=== PATIENT | male | born 1955 | race Caucasian/White ===

== ENCOUNTER 2018-05-10 07:51 | Inpatient (IN) | payer OTHER ==
[2018-05-10 09:15] LABS: #Lymphocytes 0.8 thou/uL (1.20-3.40); #Monocytes 0.9 thou/uL (0.11-0.59); #Neutrophils 9.2 thou/uL (1.40-6.50); %Basophils 0.1 % (0.0-1.0); %Eosinophils 0.2 % (0.0-10.0); %Lymphocytes 7.6 % (21.0-51.0); %Monocytes 7.7 % (0.0-10.0); %Neutrophils 84.3 % (42.0-75.0); Hemoglobin 13.7 g/dL (14.0-18.0); Mean Corpuscular HGB CONC 31.8 g/dL (32.0-36.0); Mean Corpuscular Hemoglobin 30.8 pg (27.0-31.0); Mean Platelet Volume 6.5 fL (7.4-10.4); Platelet Count 253 thou/uL (130-400); Red Blood Cell (RBC) Count 4.45 mill/uL (4.70-6.10); White Blood Cell (WBC) Count 10.9 thou/uL (4.8-10.8)
[2018-05-10 09:36] LABS: ALT (SGPT) 13 U/L (8-55); AST (SGOT) 12 U/L (5-34); Albumin 3.7 g/dL (3.4-4.8); Alkaline Phosphatase 114 U/L (40-150); Anion Gap 12 mmol/L (10-20); BUN (Urea Nitrogen) 14 mg/dL (8.4-25.7); Bilirubin, Total 0.8 mg/dL (0.2-1.2); Calc. Creatinine Clearance 0 mL/min (70-130); Calcium 8.8 mg/dL (7.8-10.44); Carbon Dioxide 28 mmol/L (23-31); Chloride 103 mmol/L (98-107); Estimated GFR-MDRD 64; Globulin 2.6 g/dL (2.4-3.5); Glucose 104 mg/dL (80-115); Potassium 3.7 mmol/L (3.5-5.1); Protein, Total 6.3 g/dL (5.8-8.1); Sodium 139 mmol/L (136-145)
[2018-05-10] MEDS ORDERED: ISOVUE-370 76%-LOCM 1 ML ONE (09:53)
[2018-05-10] MEDS ORDERED: Piperacillin/Tazobactam 4.5 GM VIAL ONE (10:18)
--- NOTE | 2018-05-10 11:29 | CT ---
CT ABDOMEN AND PELVIS WITH IV CONTRAST: Date: 05/10/18 HISTORY: Abdominal pain which began 1 day ago. COMPARISON: None available. FINDINGS: There is colonic diverticulosis seen diffusely throughout the colon with a small to moderate amount o f retained fecal material seen throughout the colon. There is inflammatory stranding seen in the righ t lower quadrant. The appendix is visualized in this region and is normal in caliber. Inflammatory st randing surrounds the appendix and in addition there is free intraperitoneal gas seen throughout the abdomen suggesting bowel perforation. These findings could be related to diverticulitis and perforati on of diverticulum, but given that gas and inflammatory changes are seen adjacent to the appendix, an d although the appendix is normal in caliber, ruptured appendix with adjacent inflammatory changes re lated to appendicitis is a possibility as well, and this is difficult to further delineate. Although again, the appendix is not dilated. There is dependent bibasilar atelectasis. There is a 3.6 cm hypodense fluid attenuation lesion within the superior pole right kidney, as well a s 4.7 cm fluid attenuation cystic lesion inferior pole right kidney, compatible with cyst. Additional subcentimeter hypodense lesions are seen within the left kidney, also statistically likely represent ing cysts. A calculus is present within the gallbladder lumen. The liver, spleen, pancreas, bilateral adrenal glands, abdominal aorta, and urinary bladder demonstra te a normal CT appearance. No free fluid or fluid collection is seen in the abdomen or pelvis. Degenerative changes are seen in the spine. There is severe left hip osteoarthritis present. IMPRESSION: 1. Free intraperitoneal gas seen throughout the abdomen suggesting bowel perforation. There are infl ammatory changes seen in the right lower quadrant, and the sigmoid colon extends into the right lower quadrant. There is no thickening of the sullivan of the colon in this region, and the appendix is not d ilated. The exact etiology for the inflammatory change is uncertain. Findings could be related to eit her perforated diverticulum or possibly perforated appendicitis; although, a normal caliber appendix now present. Findings are favored to be related to perforation of a diverticulum. 2. Cholelithiasis. There is mild intrahepatic biliary ductal dilatation of uncertain etiology. ERCP may be helpful for further evaluation. 3. Bilateral renal cysts. Above findings discussed with Dr. Metcalf in the emergency department on 05/10/18 at 1001 hours. CODE CR. POS: [facility]
--- NOTE | 2018-05-10 11:36 | HP ---
CHIEF COMPLAINT: Abdominal pain. HISTORY OF PRESENT ILLNESS: This is a 62-year-old male with no real history of abdominal pain, who presents with acute onset of severe lower abdominal cramping and pain yesterday, became more diffuse, bloating, and more severe pain this morning. Seen in the emergency room where he has been found to have a perforated colon. He has stranding change around the cecum and in the appendix area. The appendix does look normal on the CAT scan, but he has free air even in the upper abdomen. He denies nausea or vomiting. No change in stools. He has had colonoscopies that are up-to-date, and he was told he had diverticulosis. He has had a mild case of diverticulitis in the past, but never had any perforation. PAST MEDICAL HISTORY: Includes hypertension, GERD, dyslipidemia, and BPH. PAST SURGICAL HISTORY: He denies. MEDICATIONS: Taken daily include lisinopril, statin, melatonin, vitamins, Flomax. ALLERGIES: NO KNOWN DRUG ALLERGIES. SOCIAL HISTORY: He denies no current smoking. Occasional alcohol. No other drugs. REVIEW OF SYSTEMS: Otherwise, negative unless described above. PHYSICAL EXAMINATION: VITAL SIGNS: His blood pressure is 130/72, his pulse is 72, his respirations afebrile. GENERAL: Alert, no acute distress. HEENT: Sclerae anicteric. Oropharynx clear. NECK: No lymphadenopathy. CHEST: Clear. HEART: Regular rate and rhythm. ABDOMEN: Soft, mildly diffusely distended. He has diffuse guarding and peritoneal signs on deep palpation. No abdominal or inguinal hernias. EXTREMITIES: No ischemia or edema to extremities. LABORATORY DATA: White blood cell count is 10 with a hemoglobin of 13. Creatinine is 1.15. CT scan shows perforation. ASSESSMENT: Perforated viscus. PLAN: He will go to the operating room for likely colon resection plus or minus ostomy. Risks, benefits, and alternatives were discussed. He gives consent. We will do this today. Job ID: [id number]
[2018-05-10] MEDS ORDERED: Fentanyl 100 MCG/2 ML VIAL ONE ×3 (12:04→14:34)
[2018-05-10] MEDS ORDERED: Famotidine/PF 20 mg/2ml Vial ONE (12:05)
[2018-05-10] MEDS ORDERED: Ketorolac Tromethamine 30 MG/ML VIAL ONE (13:54)
[2018-05-10] MEDS ORDERED: Ondansetron PF 4 MG/2 ML Vial ONE (13:54)
[2018-05-10] MEDS ORDERED: ePHEDrine 50 MG/ML VIAL ONE (13:54)
[2018-05-10] MEDS ORDERED: PHENYLEPHRINE-NS 100 MCG/ML 10 ML SYRINGE ONE (13:54)
[2018-05-10] MEDS ORDERED: PROPOFOL 200 MG/20 ML VIAL ONE (13:54)
[2018-05-10] MEDS ORDERED: Rocuronium Bromide 10 MG/ML (10ML VIAL) ONE (13:54)
[2018-05-10] MEDS ORDERED: Succinylcholine Chloride 20 MG/ML 10 ml SYRINGE FS ONE (13:54)
[2018-05-10] MEDS ORDERED: Dexamethasone 20 MG/5 ML VIAL ONE (13:54)
[2018-05-10] MEDS ORDERED: Lidocaine 1% PF 5 ML VIAL ONE (13:54)
[2018-05-10] MEDS ORDERED: Glycopyrrolate 0.2 MG/ML 5 ML SYRINGE ONE (13:54)
[2018-05-10] MEDS ORDERED: SUGAMMADEX SODIUM 200 MG/2 ML VIAL ONE (13:56)
[2018-05-10] MEDS ORDERED: Promethazine HCl 25 MG/ML VIAL IM PRN ×3 (14:17→14:37)
[2018-05-10] MEDS ORDERED: Promethazine HCl 25 MG/ML VIAL SLOW IVP PRN (14:17)
[2018-05-10] MEDS ORDERED: Ondansetron HCl/PF 4 MG/2 ML Vial IVP PRN (14:17)
[2018-05-10] MEDS ORDERED: Meperidine HCl/PF 25 MG/ML VIAL SLOW IVP PRN (14:17)
[2018-05-10] MEDS ORDERED: diphenhydrAMINE 25 MG CAP PO PRN (14:24)
[2018-05-10] MEDS ORDERED: Zolpidem Tartrate 5 MG TAB PO PRN (14:24)
[2018-05-10] MEDS ORDERED: diphenhydrAMINE 50 MG/ML VIAL IVP PRN (14:24)
[2018-05-10] MEDS ORDERED: diphenhydrAMINE 50 MG/ML VIAL IM PRN (14:24)
[2018-05-10] MEDS ORDERED: fentaNYL Citrate/PF 2,000 MCG in Sodium Chloride 0.9% 60 ML IV PRN (14:24)
[2018-05-10] MEDS ORDERED: Ondansetron PF 4 MG/2 ML Vial IVP PRN ×2 (14:24→14:37)
[2018-05-10] MEDS ORDERED: Ketorolac Tromethamine 30 MG/ML VIAL IVP PRN (14:24)
[2018-05-10] MEDS ORDERED: Naloxone HCl 0.4 mg/ml Vial IV PRN (14:24)
[2018-05-10] MEDS ORDERED: Communication Order-Pharmacy FS SCH (14:30)
[2018-05-10] MEDS ORDERED: hydrALAZINE 20 MG/ML VIAL SLOW IVP PRN (14:37)
[2018-05-10 17:16] VITALS: BMI 39.4
[2018-05-10] MEDS: Acetaminophen 1,000 MG in Premix Bag 1 BAG IVPB SCH ×2 (18:11→23:50)
[2018-05-10] MEDS: Piperacillin/Tazobactam 3.375 GM in Sodium Chloride 0.9% 100 ML IVPB SCH (18:16)
[2018-05-10] MEDS ORDERED: Sodium Chloride 0.9% 1,000 ML IV SCH ×2 (19:00→20:00)
[2018-05-10] MEDS: D5 1/2 NS w/20 mEq KCL 1,000 ML IV SCH ×2 (19:50→23:50)
[2018-05-10] MEDS: Famotidine 20 MG TAB PO SCH (20:36)
[2018-05-10] MEDS: Enoxaparin Sodium 40 MG/0.4 ML SYRINGE SC SCH (20:36)
[2018-05-10] MEDS: Famotidine/PF 20 mg/2ml Vial SLOW IVP SCH (20:37)
--- NOTE | 2018-05-10 20:37 | OP ---
DATE OF PROCEDURE: 05/10/2018 PREOPERATIVE DIAGNOSIS: Perforated sigmoid diverticulitis. POSTOPERATIVE DIAGNOSIS: Perforated sigmoid diverticulitis. PROCEDURE PERFORMED: Exploratory laparotomy, sigmoid colectomy with end colostomy (Arjun's procedure). ANESTHESIA: General. ESTIMATED BLOOD LOSS: 50 mL. COMPLICATIONS: None. SPECIMEN: Sigmoid colon. FINDINGS: Ruptured sigmoid diverticulitis. TECHNIQUE: The patient was taken to the operating room and laid supine on the operating room table. After general anesthetic was obtained, a Dias was placed. The abdomen was shaved, prepped, and draped in a sterile fashion. Midline incision was made. Cautery dissected down to and into the abdominal cavity. Incision was made just above the belly button all the way down to the pubis. Bookwalter retractor was placed. The sigmoid colon had flipped over to the right lower quadrant, but there was a sigmoid colon perforation in the area of diverticulum. Contour stapler was fired across the lower sigmoid distal to this. The mesentery going up was taken using the Impact LigaSure. Just above the area of perforation, a reload of the stapler was fired across the sigmoid colon had been stuck to the side of the appendix. Decision was made to perform appendectomy. LigaSure was used to take the appendiceal artery and a reload on the contour stapler was fired across the base of the appendix on the cecum. The left colon was mobilized along the white line of Toldt. The left ureter was found excluded from the dissection. Ellipse of skin taken on the left lower quadrant. A cruciate incision was made in the fascia. Muscle-splitting incision was made and then end colostomy segments brought up under no tension, held in place using a Jacob. The abdomen was irrigated. There was no ongoing bleeding. There was no evidence of any residual purulence and there was no significant fecal contamination. Two pieces of Seprafilm were placed to prevent postop adhesions. Midline fascia was closed with #1 PDS from the top to the bottom, and tied in the middle. Subcutaneous tissues were irrigated and the skin was closed using skin clips followed by Telfa lamont in between the parag. The colostomy was matured in the usual fashion using 3-0 Vicryl. The patient was then returned to Recovery in stable condition. All instrument counts, needle counts, lap counts were correct. Job ID: [id number]
[2018-05-11] MEDS: Piperacillin/Tazobactam 3.375 GM in Sodium Chloride 0.9% 100 ML IVPB SCH ×5 (00:15→23:10)
[2018-05-11 04:30] LABS: #Lymphocytes 0.5 thou/uL (1.20-3.40); #Monocytes 0.7 thou/uL (0.11-0.59); #Neutrophils 11.3 thou/uL (1.40-6.50); %Eosinophils 0.1 % (0.0-10.0); %Lymphocytes 4.1 % (21.0-51.0); %Monocytes 5.5 % (0.0-10.0); %Neutrophils 90.2 % (42.0-75.0); Hemoglobin 12.7 g/dL (14.0-18.0); Mean Corpuscular HGB CONC 31.9 g/dL (32.0-36.0); Mean Corpuscular Hemoglobin 31.1 pg (27.0-31.0); Mean Corpuscular Volume 97.4 fL (78.0-98.0); Mean Platelet Volume 6.7 fL (7.4-10.4); Platelet Count 250 thou/uL (130-400); RBC Distribution Width 11.9 % (11.5-14.5); Red Blood Cell (RBC) Count 4.08 mill/uL (4.70-6.10); White Blood Cell (WBC) Count 12.5 thou/uL (4.8-10.8)
[2018-05-11 04:50] LABS: Anion Gap 13 mmol/L (10-20); BUN (Urea Nitrogen) 15 mg/dL (8.4-25.7); Calc. Creatinine Clearance 107 mL/min (70-130); Calcium 8.5 mg/dL (7.8-10.44); Carbon Dioxide 26 mmol/L (23-31); Chloride 104 mmol/L (98-107); Estimated GFR-MDRD 65; Glucose 152 mg/dL (80-115); Potassium 4.1 mmol/L (3.5-5.1); Sodium 139 mmol/L (136-145)
[2018-05-11] MEDS: Acetaminophen 1,000 MG in Premix Bag 1 BAG IVPB SCH ×2 (05:49→11:57)
[2018-05-11] MEDS: D5 1/2 NS w/20 mEq KCL 1,000 ML IV SCH ×3 (09:45→16:29)
[2018-05-11] MEDS: Famotidine/PF 20 mg/2ml Vial SLOW IVP SCH ×2 (09:49→20:18)
[2018-05-11] MEDS: Famotidine 20 MG TAB PO SCH ×2 (09:52→20:15)
[2018-05-11] MEDS ORDERED: Tamsulosin HCl 0.4 MG CAP PO SCH (10:15)
--- NOTE | 2018-05-11 10:34 | PRG ---
DATE OF SERVICE: 05/11/2018 SUBJECTIVE: Postop day 1, left colectomy, colostomy. Mr. Neumann is doing well. His pain is controlled. He has already walked a few times. OBJECTIVE: VITAL SIGNS: He is afebrile. Vital signs are stable. Urine output is good. ABDOMEN: Soft, appropriately tender. Midline incision dressings are changed. There is some blood on the Telfa lamont. Colostomy site is intact. The colostomy mucosa is pink. LABORATORY DATA: White cell count is 12, hemoglobin is 12, platelet count is 250. Creatinine 1.14. ASSESSMENT: Postoperative day 1, Arjun procedure. PLAN: Clear liquids again today. Discontinue Dias tomorrow. We will re-add his home medications. Job ID: [id number]
[2018-05-11] MEDS: Ketotifen Fumarate 0.025% Ophth Soln 5 ml Bottle EA EYE SCH (20:14)
[2018-05-11] MEDS: Melatonin 3 MG TAB PO SCH (20:15)
[2018-05-11] MEDS: Enoxaparin Sodium 40 MG/0.4 ML SYRINGE SC SCH (20:17)
[2018-05-12] MEDS: Piperacillin/Tazobactam 3.375 GM in Sodium Chloride 0.9% 100 ML IVPB SCH ×4 (05:29→23:56)
[2018-05-12 05:32] LABS: #Eosinphils 0.1 thou/uL (0.0-0.7); #Lymphocytes 0.7 thou/uL (1.20-3.40); #Monocytes 0.9 thou/uL (0.11-0.59); #Neutrophils 10.2 thou/uL (1.40-6.50); %Basophils 0.2 % (0.0-1.0); %Eosinophils 0.8 % (0.0-10.0); %Lymphocytes 5.6 % (21.0-51.0); %Monocytes 7.8 % (0.0-10.0); %Neutrophils 85.5 % (42.0-75.0); Hemoglobin 13.5 g/dL (14.0-18.0); Mean Corpuscular HGB CONC 31.4 g/dL (32.0-36.0); Mean Corpuscular Hemoglobin 30.8 pg (27.0-31.0); Mean Platelet Volume 6.8 fL (7.4-10.4); Platelet Count 279 thou/uL (130-400); RBC Distribution Width 11.9 % (11.5-14.5); Red Blood Cell (RBC) Count 4.38 mill/uL (4.70-6.10)
[2018-05-12 05:56] LABS: Anion Gap 14 mmol/L (10-20); BUN (Urea Nitrogen) 9 mg/dL (8.4-25.7); Calc. Creatinine Clearance 112 mL/min (70-130); Calcium 8.8 mg/dL (7.8-10.44); Carbon Dioxide 24 mmol/L (23-31); Chloride 106 mmol/L (98-107); Estimated GFR-MDRD 68; Glucose 111 mg/dL (80-115); Sodium 140 mmol/L (136-145)
[2018-05-12] MEDS: Lisinopril 20 MG TAB PO SCH (08:25)
[2018-05-12] MEDS: Famotidine 20 MG TAB PO SCH ×2 (08:27→18:22)
[2018-05-12] MEDS: Tamsulosin HCl 0.4 MG CAP PO SCH (08:28)
[2018-05-12] MEDS: Famotidine/PF 20 mg/2ml Vial SLOW IVP SCH ×2 (08:29→19:52)
[2018-05-12] MEDS: Ketotifen Fumarate 0.025% Ophth Soln 5 ml Bottle EA EYE SCH ×2 (08:29→19:52)
[2018-05-12] MEDS: Montelukast Sodium 10 mg Tablet PO SCH (08:35)
[2018-05-12] MEDS: D5 1/2 NS w/20 mEq KCL 1,000 ML IV SCH ×2 (08:36→19:52)
[2018-05-12] MEDS ORDERED: Fentanyl 100 MCG/2 ML VIAL SLOW IVP PRN ×2 (09:37)
[2018-05-12] MEDS ORDERED: HYDROcodone/Acetaminophen 7.5/325 mg Tablet PO PRN ×2 (09:38)
--- NOTE | 2018-05-12 09:48 | PRG ---
DATE OF SERVICE: 05/12/2018 SUBJECTIVE: Mr. Neumann has no complaints. He tolerated the clear liquids without difficulty. His Dias was removed this morning. He is still due to void. He has already been restarted on his Flomax. OBJECTIVE: VITAL SIGNS: He is afebrile. Vital signs are stable. ABDOMEN: Soft, minimally distended, but active bowel sounds. Midline wound dressings are clear. Colostomy mucosa is pink, but not much stool yet. LABORATORY DATA: White blood cell count is 12, hemoglobin 13, platelet count is 279. Creatinine 1.09. ASSESSMENT: Postop day #2, left colectomy with end colostomy for ruptured sigmoid diverticulitis. PLAN: Continue antibiotics. Advance to full liquids. Replace Dias if not able to void. Job ID: [id number]
[2018-05-12] MEDS: Melatonin 3 MG TAB PO SCH (19:52)
[2018-05-12] MEDS: Enoxaparin Sodium 40 MG/0.4 ML SYRINGE SC SCH (19:52)
[2018-05-13] MEDS: Piperacillin/Tazobactam 3.375 GM in Sodium Chloride 0.9% 100 ML IVPB SCH ×4 (05:17→23:27)
[2018-05-13] MEDS: Lisinopril 20 MG TAB PO SCH (08:57)
[2018-05-13] MEDS: Famotidine 20 MG TAB PO SCH ×2 (08:57→21:37)
[2018-05-13] MEDS: Montelukast Sodium 10 mg Tablet PO SCH (08:57)
[2018-05-13] MEDS: Tamsulosin HCl 0.4 MG CAP PO SCH (08:58)
[2018-05-13] MEDS: Famotidine/PF 20 mg/2ml Vial SLOW IVP SCH ×2 (09:14→21:37)
[2018-05-13] MEDS: Ketotifen Fumarate 0.025% Ophth Soln 5 ml Bottle EA EYE SCH ×2 (11:36→21:38)
[2018-05-13] MEDS: Enoxaparin Sodium 40 MG/0.4 ML SYRINGE SC SCH (21:36)
[2018-05-13] MEDS: Melatonin 3 MG TAB PO SCH (21:38)
[2018-05-14] MEDS: Piperacillin/Tazobactam 3.375 GM in Sodium Chloride 0.9% 100 ML IVPB SCH ×2 (05:33→12:00)
[2018-05-14] MEDS: Famotidine/PF 20 mg/2ml Vial SLOW IVP SCH ×2 (09:21→21:27)
[2018-05-14] MEDS: Montelukast Sodium 10 mg Tablet PO SCH (09:21)
[2018-05-14] MEDS: Famotidine 20 MG TAB PO SCH ×2 (09:21→21:27)
[2018-05-14] MEDS: Ketotifen Fumarate 0.025% Ophth Soln 5 ml Bottle EA EYE SCH ×2 (09:22→21:27)
[2018-05-14] MEDS: Lisinopril 20 MG TAB PO SCH (09:22)
[2018-05-14] MEDS: Tamsulosin HCl 0.4 MG CAP PO SCH (09:24)
--- NOTE | 2018-05-14 13:49 | PDOC.GSPN ---
Surgery Progress Note: Subj - Subjective Patient reports: no new complaints, tolerating a regular diet Surgery Progress Note: Obj - Vital signs Vital signs: Vital Signs - Most Recent Temp Pulse Resp BP Pulse Ox 98.5 F 75 16 116/71 96 05/14/18 12:00 05/14/18 12:00 05/14/18 12:00 05/14/18 12:00 05/14/18 12:00 - Physical Exam General: no distress Respiratory: clear to auscultation Abdomen: soft, non tender, nondistended Wound: healing well Surgery Progress Note: Results - Labs Result Diagrams: 05/12/18 05:08 05/12/18 05:08 Surgery Progress Note: A/P - Problem (1) Perforated sigmoid colon Current Visit: Yes Code(s): K63.1 - PERFORATION OF INTESTINE (NONTRAUMATIC) Status: Acute - Plan Plan: Dressing changed. -change to oral abx -home tomorrow
[2018-05-14] MEDS: metroNIDAZOLE 500 MG TAB PO SCH ×2 (14:34→21:27)
[2018-05-14] MEDS: Ciprofloxacin 500 MG TAB PO SCH (21:26)
[2018-05-14] MEDS: Enoxaparin Sodium 40 MG/0.4 ML SYRINGE SC SCH (21:27)
[2018-05-14] MEDS: Melatonin 3 MG TAB PO SCH (21:27)
[2018-05-15] MEDS: Ciprofloxacin 500 MG TAB PO SCH (05:33)
[2018-05-15] MEDS: Famotidine/PF 20 mg/2ml Vial SLOW IVP SCH (08:09)
[2018-05-15] MEDS: Famotidine 20 MG TAB PO SCH (08:10)
[2018-05-15] MEDS: Lisinopril 20 MG TAB PO SCH (08:10)
[2018-05-15] MEDS: metroNIDAZOLE 500 MG TAB PO SCH (08:10)
[2018-05-15] MEDS: Montelukast Sodium 10 mg Tablet PO SCH (08:10)
[2018-05-15] MEDS: Ketotifen Fumarate 0.025% Ophth Soln 5 ml Bottle EA EYE SCH (08:10)
[2018-05-15] MEDS: Tamsulosin HCl 0.4 MG CAP PO SCH (08:10)
[2018-05-15 14:05] VITALS: BP 132/86; TEMP 98.3
--- NOTE | 2018-05-15 14:20 | DIS ---
DATE OF ADMISSION: 05/10/2018 DATE OF DISCHARGE: 05/15/2018 ADMITTING DIAGNOSIS: Ruptured sigmoid diverticulitis. DISCHARGE DIAGNOSIS: Ruptured sigmoid diverticulitis. PROCEDURES: Sigmoid colectomy and colostomy by Dr. Anna without complication. CONDITION ON DISCHARGE: Improved. STAFF: Preston Anna MD HOSPITAL COURSE: Postop course was uneventful. The patient's ileus slowly resolved. On the day of discharge, he is doing well. He is tolerating regular food. He is afebrile. Vital signs are stable. Minimal pain. His abdominal lamont were removed and the wound was probed few times in between parag. There was no evidence of infection at the time of discharge. He is to be sent home on Cipro and Flagyl. He was given a prescription for ostomy supplies. He was given a prescription for hydrocodone. He will follow up with me in the office in 2 weeks for staple removal. Job ID: [id number]
== END 2018-05-15 13:45 | disposition home or self-care (01) | DRG 330 ==
LOC: ERS 07:51 → SURG A 12:03 → SDC 12:48 → SURG A 15:22
PROVIDERS: ADMIT Surgery; ATTEND Surgery
PROC: 0DTN0ZZ Resection of Sigmoid Colon, Open Approach (ICD-10-PCS; principal; 2018-05-10)
PROC: 0D1L0Z4 Bypass Transverse Colon to Cutaneous, Open Approach (ICD-10-PCS; 2018-05-10)
PROC: 0DTJ0ZZ Resection of Appendix, Open Approach (ICD-10-PCS; 2018-05-10)
PROC: 3E0M05Z Introduction of Adhesion Barrier into Peritoneal Cavity, Open Approach (ICD-10-PCS; 2018-05-10)
DX: K57.20 Diverticulitis of large intestine with perforation and abscess without bleeding (principal); K56.7 Ileus, unspecified; I10 Essential (primary) hypertension; K21.9 Gastro-esophageal reflux disease without esophagitis; E78.5 Hyperlipidemia, unspecified; N40.0 Benign prostatic hyperplasia without lower urinary tract symptoms
CPT/HCPCS: 36415; 74177; 80048; 80053; 85025; 88307; 90471; 90686; 93005; 96361; 96365; G0008; J0131; J1100; J1650; J1885; J2001; J2405; J2543; J2704; J3010; J3490; J7050; Q9966; S0028

== ENCOUNTER 2018-05-23 11:28 | Outpatient (CLI) | payer OTHER ==
[2018-05-23] MEDS ORDERED: Sodium Chloride 0.9% 15 ML NEB ONE (15:00)
== END 2018-05-23 11:29 | disposition home or self-care (01) ==
LOC: WCC 11:28
PROVIDERS: ATTEND Family Medicine
DX: Z48.815 Encounter for surgical aftercare following surgery on the digestive system (principal); Z93.3 Colostomy status
CPT/HCPCS: 99211; A4218; G0463

== ENCOUNTER 2018-07-11 16:52 | Emergency (ER) | payer OTHER ==
--- NOTE | 2018-07-11 18:43 | RAD ---
THREE VIEWS RIGHT HAND: 07/11/18 HISTORY: Right hand finger deformity. AP, lateral and oblique views right hand obtained. Images demonstrate dislocation of the PIP joint fourth digit right hand. The rest of the right hand i s unremarkable. IMPRESSION: PIP joint dislocation fourth digit right hand. POS: [facility]
--- NOTE | 2018-07-11 19:42 | RAD ---
THREE VIEWS FOURTH DIGIT RIGHT HAND: 07/11/18 HISTORY: Post reduction, dislocated digit. AP, lateral and oblique views fourth digit right hand obtained. Images demonstrate status post reduction of the finger dislocation. Small avulsion fracture is seen a nterior to the proximal portion of the middle phalanx. The dislocated finger has been reduced. IMPRESSION: Status post reduction of the dislocated PIP joint. Small avulsion fracture seen anterior to the proxi mal portion of the middle phalanx. POS: [facility]
== END 2018-07-11 19:54 | disposition home or self-care (01) ==
LOC: ERS 16:52
DX: S62.612A Displaced fracture of proximal phalanx of right middle finger, initial encounter for closed fracture (principal); E78.5 Hyperlipidemia, unspecified; I10 Essential (primary) hypertension; F32.9 Major depressive disorder, single episode, unspecified; W10.9XXA Fall (on) (from) unspecified stairs and steps, initial encounter
CPT/HCPCS: 26770

== ENCOUNTER 2018-08-20 06:29 | Outpatient (CLI) | payer OTHER ==
[2018-08-22 14:54] LABS: #Eosinphils 0.1 thou/uL (0.0-0.7); #Lymphocytes 1.1 thou/uL (1.20-3.40); #Monocytes 0.7 thou/uL (0.11-0.59); #Neutrophils 6.1 thou/uL (1.40-6.50); %Basophils 0.3 % (0.0-1.0); %Eosinophils 1.1 % (0.0-10.0); %Lymphocytes 13.4 % (21.0-51.0); %Monocytes 8.3 % (0.0-10.0); %Neutrophils 77.1 % (42.0-75.0); Hemoglobin 15.8 g/dL (14.0-18.0); Mean Corpuscular HGB CONC 32.6 g/dL (32.0-36.0); Mean Corpuscular Hemoglobin 30.8 pg (27.0-31.0); Mean Corpuscular Volume 94.4 fL (78.0-98.0); Mean Platelet Volume 6.9 fL (7.4-10.4); Platelet Count 287 thou/uL (130-400); RBC Distribution Width 12.6 % (11.5-14.5); Red Blood Cell (RBC) Count 5.14 mill/uL (4.70-6.10)
[2018-08-22 15:04] LABS: Hemoglobin A1c 5.8 % (4.0-6.0)
[2018-08-22 15:19] LABS: Anion Gap 13 mmol/L (10-20); BUN (Urea Nitrogen) 27 mg/dL (8.4-25.7); Calc. Creatinine Clearance 0 mL/min (70-130); Calcium 9.4 mg/dL (7.8-10.44); Carbon Dioxide 26 mmol/L (23-31); Chloride 102 mmol/L (98-107); Estimated GFR-MDRD 66; Glucose 100 mg/dL (80-115); Potassium 4.9 mmol/L (3.5-5.1); Sodium 136 mmol/L (136-145)
== END 2018-08-20 06:30 | disposition home or self-care (01) ==
LOC: LABBT 06:29
PROVIDERS: ATTEND Surgery
DX: Z01.818 Encounter for other preprocedural examination (principal); K57.92 Diverticulitis of intestine, part unspecified, without perforation or abscess without bleeding
CPT/HCPCS: 80048; 83036; 85025; 93005; 93010

== ENCOUNTER 2018-08-26 05:37 | Inpatient (IN) | payer OTHER ==
[2018-08-26] MEDS ORDERED: Fentanyl 100 MCG/2 ML VIAL ONE ×3 (06:30→09:02)
[2018-08-26] MEDS ORDERED: Midazolam HCl 2 mg/2 ml Vial ONE ×2 (06:30→06:33)
[2018-08-26] MEDS ORDERED: cefOXitin 2 GM VIAL ONE ×2 (06:31→09:11)
[2018-08-26] MEDS ORDERED: Sodium Chloride 0.9% 100 ML ONE (06:31)
[2018-08-26] MEDS ORDERED: HYDROmorphone 2 MG/ML VIAL ONE (10:57)
[2018-08-26] MEDS ORDERED: fentaNYL Citrate/PF 2,000 MCG in Sodium Chloride 0.9% 60 ML IV PRN (12:08)
[2018-08-26] MEDS ORDERED: diphenhydrAMINE 25 MG CAP PO PRN (12:10)
[2018-08-26] MEDS ORDERED: diphenhydrAMINE 50 MG/ML VIAL IM/IV PRN (12:10)
[2018-08-26] MEDS ORDERED: Zolpidem Tartrate 5 MG TAB PO PRN (12:10)
[2018-08-26] MEDS ORDERED: Promethazine HCl 25 MG/ML VIAL IM PRN ×2 (12:10→17:24)
[2018-08-26] MEDS ORDERED: Ondansetron PF 4 MG/2 ML Vial IVP PRN ×2 (12:10→17:24)
[2018-08-26] MEDS ORDERED: Naloxone HCl 0.4 mg/ml Vial IV PRN (12:10)
--- NOTE | 2018-08-26 16:07 | OP ---
DATE OF PROCEDURE: 08/26/2018 PREOPERATIVE DIAGNOSES: 1. History of ruptured diverticulitis. 2. Colostomy dysfunction. POSTOPERATIVE DIAGNOSES: 1. History of ruptured diverticulitis. 2. Colostomy dysfunction. 3. Rectal stricture. PROCEDURE PERFORMED: Attempted colostomy takedown via exploratory laparotomy, repair of rectal stump. No colostomy reversal was performed. ANESTHESIA: General. ESTIMATED BLOOD LOSS: 400 mL. COMPLICATIONS: None. FINDINGS: The patient had a low rectal stricture, which was dissected free, but passage of a stapler caused a tear of the rectum that had to be repaired. DESCRIPTION OF PROCEDURE: The patient underwent mechanical and antibiotic bowel prep. He had preop colonoscopy revealing no proximal disease or malignancy. He had preop tap blocks. He was taken to the operating room and laid supine on the operating room table. After general anesthetic was obtained, a Dias was placed. He was placed in lithotomy position. Midline incision was reopened. Cautery was dissected down into the abdominal cavity. There were minimal adhesions in the abdomen. The small bowel was retracted out of the pelvis exposing the rectal stump. The rectal stump was dissected down to the upper rectum. The rectal serosa appeared viable. Next, the colostomy was taken down in the usual fashion by lifting it up from the skin in the left lower quadrant. The colostomy was able to be brought down into the pelvis under no tension. A 31 EEA anvil was passed through the colostomy and mesenteric surface of the colon proximally just distal to this, a stapler was stapled across the colon locking the anvil in place. This was able to be brought down into the pelvis under no tension. The EEA sizers were then brought up through the anus and it was found that he had a tight stenosis in the mid upper rectum; however, the small EEA sizer was able to traverse this area. The 31 EEA stapler was then passed up and there was some difficulty passing it up to the point of the distal staple line, but it was able to be done and the anvil was brought down from above and an anastomosis was performed. The anastomosis was tested by air insufflation and there was significant air leakage. Dissection was taken down and further in the rectum. Posterior dissection was taken down all the way to the levators. There was a posterior tear going down to the lower third of the rectum. A reload of a contour stapler was fired just above this for the colon segment from above to be brought back out of the pelvis. This was repaired using 2-0 Vicryl in 2 layers; however, after repair of the rectum, it appeared to be fairly small and contracted. Decision was made to not perform pelvic anastomosis. The proximal segment brought back out through the colostomy site. The fascial defect was tightened using PDS. There was no ongoing bleeding in the abdomen. The abdomen was irrigated using sterile solution. Seprafilm was placed. Midline fascia was closed using #1 PDS from the top to the bottom and tied in the middle. All instrument counts, needle counts, and lap counts were correct. The skin was closed using 3-0 Vicryl, 4-0 Monocryl, and Dermabond. Colostomy was then matured again using 3-0 Vicryl. Colostomy device was placed. The patient was sent to Recovery in stable condition. All instrument counts, needle counts, and lap counts were correct. Job ID: [id number]
[2018-08-26] MEDS ORDERED: hydrALAZINE 20 MG/ML VIAL SLOW IVP PRN (17:24)
[2018-08-26] MEDS ORDERED: cefOXitin 2 GM in Sodium Chloride 0.9% 100 ML IVPB SCH (18:00)
[2018-08-26 18:22] VITALS: BMI 39.0
[2018-08-26] MEDS: Acetaminophen 1,000 MG in Premix Bag 1 BAG IVPB SCH (18:58)
[2018-08-26] MEDS: cefOXitin Sodium/Dextrose,Iso 2 GM in Premix Bag 1 BAG IVPB SCH (19:39)
[2018-08-26] MEDS: D5 1/2 NS w/20 mEq KCL 1,000 ML IV SCH (19:39)
[2018-08-26] MEDS: Famotidine 20 MG TAB PO SCH (20:32)
[2018-08-26] MEDS: Atorvastatin Calcium 40 MG TAB PO SCH (20:32)
[2018-08-26] MEDS: Enoxaparin Sodium 40 MG/0.4 ML SYRINGE SC SCH (20:33)
[2018-08-26] MEDS: Melatonin 3 MG TAB PO SCH (20:33)
[2018-08-26] MEDS: Ketotifen Fumarate 0.025% Ophth Soln 5 ml Bottle EA EYE SCH (20:33)
[2018-08-26] MEDS: Famotidine/PF 20 mg/2ml Vial SLOW IVP SCH (20:34)
[2018-08-27] MEDS: Acetaminophen 1,000 MG in Premix Bag 1 BAG IVPB SCH ×4 (00:07→11:58)
[2018-08-27] MEDS: cefOXitin Sodium/Dextrose,Iso 2 GM in Premix Bag 1 BAG IVPB SCH ×3 (02:13→18:05)
[2018-08-27] MEDS: D5 1/2 NS w/20 mEq KCL 1,000 ML IV SCH ×4 (03:57→18:06)
[2018-08-27 04:45] LABS: #Lymphocytes 0.7 thou/uL (1.20-3.40); #Monocytes 0.8 thou/uL (0.11-0.59); #Neutrophils 11.4 thou/uL (1.40-6.50); %Eosinophils 0.1 % (0.0-10.0); %Lymphocytes 5.3 % (21.0-51.0); %Monocytes 6.4 % (0.0-10.0); %Neutrophils 88.2 % (42.0-75.0); Hemoglobin 12.9 g/dL (14.0-18.0); Mean Corpuscular HGB CONC 32.4 g/dL (32.0-36.0); Mean Corpuscular Hemoglobin 30.9 pg (27.0-31.0); Mean Corpuscular Volume 95.5 fL (78.0-98.0); Mean Platelet Volume 7.2 fL (7.4-10.4); Platelet Count 235 thou/uL (130-400); RBC Distribution Width 12.3 % (11.5-14.5); Red Blood Cell (RBC) Count 4.17 mill/uL (4.70-6.10); White Blood Cell (WBC) Count 12.9 thou/uL (4.8-10.8)
[2018-08-27 05:01] LABS: Anion Gap 11 mmol/L (10-20); BUN (Urea Nitrogen) 15 mg/dL (8.4-25.7); Calc. Creatinine Clearance 107 mL/min (70-130); Calcium 8.2 mg/dL (7.8-10.44); Carbon Dioxide 28 mmol/L (23-31); Chloride 102 mmol/L (98-107); Estimated GFR-MDRD 64; Glucose 140 mg/dL (80-115); Potassium 4.6 mmol/L (3.5-5.1); Sodium 136 mmol/L (136-145)
[2018-08-27] MEDS: Montelukast Sodium 10 mg Tablet PO SCH (08:30)
[2018-08-27] MEDS: DULoxetine 60 MG CAP PO SCH (08:30)
[2018-08-27] MEDS: Tamsulosin HCl 0.4 MG CAP PO SCH (08:30)
[2018-08-27] MEDS: Famotidine 20 MG TAB PO SCH ×2 (08:30→20:11)
[2018-08-27] MEDS: Famotidine/PF 20 mg/2ml Vial SLOW IVP SCH ×2 (08:31→20:58)
[2018-08-27] MEDS: Ketotifen Fumarate 0.025% Ophth Soln 5 ml Bottle EA EYE SCH ×2 (08:31→20:11)
[2018-08-27] MEDS: Lisinopril 20 MG TAB PO SCH (08:31)
[2018-08-27] MEDS ORDERED: Fluticasone Propionate Nasal Spray 16 gm Bottle NASAL PRN (09:00)
--- NOTE | 2018-08-27 11:21 | PDOC.GSPN ---
Surgery Progress Note: Subj - Subjective Patient reports: no new complaints, feels better, nausea, pain is less Narrative: Mr. Neumann reports feeling better today. Pain scale 7/10, however he states he feels "okay" and pain is better than yesterday. He denies vomiting, headaches, shortness of breath, and palpitations. Patient was moved to a full liquid diet yesterday. He mentions some nausea, reflux, and coughing at first due to the liquids given being too acidic for him to tolerate. However, he was able to tolerate potato soup and vanilla pudding well, which decreased these symptoms Patient had a goal of walking 4 times yesterday, in which he was only able to walk and ambulate twice. He experienced some dizziness with the activity, however he says he feels okay and will try more today. [[August 28, 2018 - 6:39am]] Surgery Progress Note: Obj - Vital signs Vital signs: Vital Signs - Most Recent Temp Pulse Resp BP Pulse Ox 98.1 F 81 18 105/68 94 L 08/27/18 11:14 08/27/18 11:14 08/27/18 11:14 08/27/18 11:14 08/27/18 11:14 - Physical Exam General: no distress (Patient is pleasant and cooperative.) ENT: no congestion Neck: no lymphadectomy, no masses Cardiovascular: regular rate and rhythm Respiratory: clear to auscultation (Had a little discomfort taking full breath.) Abdomen: soft (Slight tenderness upon light palpation. No pain. Surgical inscision appears clean and without erythema or infectious signs. No abdominal bruits. Bowel sounds slightly decreased and quiet to auscultation. Dias still in place. Colostomy bag appears clean with some blood.), appropriately tender Hernia: none Surgery Progress Note: Results - Labs Result Diagrams: 08/27/18 03:53 08/27/18 03:53 Lab results: Laboratory Results - last 24 hr 08/27/18 08/27/18 08/27/18 03:53 03:53 05:41 WBC 12.9 H RBC 4.17 L Hgb 12.9 L Hct 39.8 L MCV 95.5 MCH 30.9 MCHC 32.4 RDW 12.3 Plt Count 235 MPV 7.2 L Neutrophils % 88.2 H Lymphocytes % 5.3 L Monocytes % 6.4 Eosinophils % 0.1 Basophils % 0.0 Neutrophils # 11.4 H Lymphocytes # 0.7 L Monocytes # 0.8 H Eosinophils # 0.0 Basophils # 0.0 Sodium 136 Potassium 4.6 Chloride 102 Carbon Dioxide 28 Anion Gap 11 BUN 15 Creatinine 1.16 Estimated GFR (MDRD) 64 Glucose 140 H POC Glucose 130 H Calcium 8.2 Surgery Progress Note: A/P - Plan Plan: A/P Colostomy Post Op -Continue pain management as needed -Continue on full liquid diet. May advance diet later on today depending on how he tolerates it. -Continue walking/ambulation (Ex-goal: walk at least 2 times or more to maintain activity from previous day) -Wound care Addendum - Physician - Physician Attestation Date/Time: 09/01/18 [id number] I personally performed or re-performed the physical examination and medical decision making. I have verified all student documentation or findings, including history, physical exam and/or medical decision making.
--- NOTE | 2018-08-27 11:33 | PDOC.GSPN ---
Surgery Progress Note: Subj - Subjective Patient reports: pain well controlled Surgery Progress Note: Obj - Vital signs Vital signs: Vital Signs - Most Recent Temp Pulse Resp BP Pulse Ox 98.1 F 81 18 105/68 94 L 08/27/18 11:14 08/27/18 11:14 08/27/18 11:14 08/27/18 11:14 08/27/18 11:14 - Physical Exam General: no distress Cardiovascular: regular rate and rhythm Respiratory: clear to auscultation Abdomen: soft, appropriately tender Wound: healing well Surgery Progress Note: Results - Labs Result Diagrams: 08/27/18 03:53 08/27/18 03:53 Lab results: Laboratory Results - last 24 hr 08/27/18 08/27/18 08/27/18 03:53 03:53 05:41 WBC 12.9 H RBC 4.17 L Hgb 12.9 L Hct 39.8 L MCV 95.5 MCH 30.9 MCHC 32.4 RDW 12.3 Plt Count 235 MPV 7.2 L Neutrophils % 88.2 H Lymphocytes % 5.3 L Monocytes % 6.4 Eosinophils % 0.1 Basophils % 0.0 Neutrophils # 11.4 H Lymphocytes # 0.7 L Monocytes # 0.8 H Eosinophils # 0.0 Basophils # 0.0 Sodium 136 Potassium 4.6 Chloride 102 Carbon Dioxide 28 Anion Gap 11 BUN 15 Creatinine 1.16 Estimated GFR (MDRD) 64 Glucose 140 H POC Glucose 130 H Calcium 8.2 Surgery Progress Note: A/P - Problem (1) Colostomy dysfunction Current Visit: Yes Code(s): K94.03 - COLOSTOMY MALFUNCTION Status: Acute - Plan Plan: POD 1 Attempted Colostomy reversal -Not amenable to takedown given rectal stricture -Advance to full liquids -ambulate
[2018-08-27] MEDS: Enoxaparin Sodium 40 MG/0.4 ML SYRINGE SC SCH (20:12)
[2018-08-27] MEDS: Melatonin 3 MG TAB PO SCH (20:12)
[2018-08-27] MEDS: Atorvastatin Calcium 40 MG TAB PO SCH (20:12)
[2018-08-28] MEDS: cefOXitin Sodium/Dextrose,Iso 2 GM in Premix Bag 1 BAG IVPB SCH ×3 (02:15→18:06)
[2018-08-28] MEDS: D5 1/2 NS w/20 mEq KCL 1,000 ML IV SCH ×2 (06:44→09:36)
[2018-08-28] MEDS: Tamsulosin HCl 0.4 MG CAP PO SCH (09:38)
[2018-08-28] MEDS: DULoxetine 60 MG CAP PO SCH (09:39)
[2018-08-28] MEDS: Lisinopril 20 MG TAB PO SCH (09:39)
[2018-08-28] MEDS: Montelukast Sodium 10 mg Tablet PO SCH (09:39)
[2018-08-28] MEDS: Famotidine 20 MG TAB PO SCH ×2 (09:39→19:45)
[2018-08-28] MEDS: Ketotifen Fumarate 0.025% Ophth Soln 5 ml Bottle EA EYE SCH ×2 (09:40→19:45)
[2018-08-28] MEDS ORDERED: D5 1/2 NS w/20 mEq KCL 1,000 ML IV SCH (11:39)
[2018-08-28] MEDS: Famotidine/PF 20 mg/2ml Vial SLOW IVP SCH ×2 (11:52→19:44)
[2018-08-28] MEDS ORDERED: HYDROcodone/Acetaminophen 10/325 mg Tablet PO PRN ×2 (11:55)
[2018-08-28] MEDS ORDERED: traMADol HCl 50 MG TAB PO PRN ×2 (11:57)
[2018-08-28] MEDS ORDERED: Fentanyl 100 MCG/2 ML VIAL SLOW IVP PRN (11:59)
[2018-08-28] MEDS: Atorvastatin Calcium 40 MG TAB PO SCH (19:44)
[2018-08-28] MEDS: Melatonin 3 MG TAB PO SCH (19:44)
[2018-08-28] MEDS: Enoxaparin Sodium 40 MG/0.4 ML SYRINGE SC SCH (19:45)
[2018-08-29] MEDS: cefOXitin Sodium/Dextrose,Iso 2 GM in Premix Bag 1 BAG IVPB SCH ×3 (01:04→17:35)
--- NOTE | 2018-08-29 07:55 | PDOC.GSPN ---
Surgery Progress Note: Subj - Subjective Patient reports: no new complaints, feels better, pain well controlled, tolerating liquids well, nausea Narrative: Mr. Neumann states he feels good today. He denies vomiting, headaches, shortness of breath, or palpitations. Rates pain 0/10. He mentioned some intermittent reflux and nausea. He also had a question regarding traveling with his colostomy bag. Activity is still going well. He went to 2 walks yesterday (same as the day before). Will try to ambulate more today. Tolerating full liquid diet much better than yesterday. Experienced reflux from acidic liquids at first, and therefore prefer's puddings and cream of wheat with which he can better tolerate. May begin to consume soft foods. Surgery Progress Note: Obj - Vital signs Vital signs: Vital Signs - Most Recent Temp Pulse Resp BP Pulse Ox 97.7 F 83 18 105/63 95 08/29/18 04:00 08/29/18 04:00 08/29/18 04:00 08/29/18 04:00 08/29/18 04:00 - Physical Exam General: no distress, no pain ENT: normal mucosa Neck: no lymphadectomy, no masses Cardiovascular: regular rate and rhythm (No murmurs or gallops.) Respiratory: clear to auscultation, normal expansion, normal respiratory effort (Breathing well without difficulty.) Abdomen: soft, positive bowel sounds (Bowel sounds present and more active than yesterday. No pain upon light palpation. No abdominal bruits.), appropriately tender Wound: dressing clean,dry,intact (Colostomy bag with contents today.), healing well (Surgical inscision is clean and dry wihtout signs of infection or erythema. Slight bleeding present but well controlled and covered with gauze.) Surgery Progress Note: Results - Labs Result Diagrams: 08/27/18 03:53 08/27/18 03:53 Surgery Progress Note: A/P - Plan Plan: A/P Colostomy - Pain well managed. Will continue pain medicines as needed. - Full liquids well tolerated. Will advance diet to soft foods. - Aim to increase ambulation to more than 2 walks to maintain activity. - Continue wound care. Addendum - Physician - Physician Attestation Date/Time: 08/29/18 [id number] I personally performed or re-performed the physical examination and medical decision making. I have verified all student documentation or findings, including history, physical exam and/or medical decision making. -Expect DC tomorrow -I sent omar/akiko to [facility] on
[2018-08-29] MEDS: DULoxetine 60 MG CAP PO SCH (09:21)
[2018-08-29] MEDS: Lisinopril 20 MG TAB PO SCH (09:21)
[2018-08-29] MEDS: Montelukast Sodium 10 mg Tablet PO SCH (09:21)
[2018-08-29] MEDS: Tamsulosin HCl 0.4 MG CAP PO SCH (09:21)
[2018-08-29] MEDS: Famotidine 20 MG TAB PO SCH ×2 (09:21→21:08)
[2018-08-29] MEDS: Famotidine/PF 20 mg/2ml Vial SLOW IVP SCH ×2 (09:31→21:12)
[2018-08-29] MEDS: Ketotifen Fumarate 0.025% Ophth Soln 5 ml Bottle EA EYE SCH ×2 (09:32→21:09)
[2018-08-29] MEDS ORDERED: HYDROcodone/Acetaminophen 7.5/325 mg Tablet PO PRN ×2 (11:48)
[2018-08-29] MEDS: Melatonin 3 MG TAB PO SCH ×2 (21:08→21:11)
[2018-08-29] MEDS: Enoxaparin Sodium 40 MG/0.4 ML SYRINGE SC SCH (21:08)
[2018-08-29] MEDS: Atorvastatin Calcium 40 MG TAB PO SCH (21:08)
[2018-08-30] MEDS: cefOXitin Sodium/Dextrose,Iso 2 GM in Premix Bag 1 BAG IVPB SCH ×2 (01:01→09:07)
[2018-08-30] MEDS: Lisinopril 20 MG TAB PO SCH (09:05)
[2018-08-30] MEDS: Montelukast Sodium 10 mg Tablet PO SCH (09:05)
[2018-08-30] MEDS: DULoxetine 60 MG CAP PO SCH (09:06)
[2018-08-30] MEDS: Ketotifen Fumarate 0.025% Ophth Soln 5 ml Bottle EA EYE SCH (09:06)
[2018-08-30] MEDS: Tamsulosin HCl 0.4 MG CAP PO SCH (09:06)
[2018-08-30] MEDS: Famotidine 20 MG TAB PO SCH (09:06)
[2018-08-30] MEDS: Famotidine/PF 20 mg/2ml Vial SLOW IVP SCH (09:11)
[2018-08-30 15:14] VITALS: BP 124/77; TEMP 98.6
--- NOTE | 2018-08-30 15:25 | PRG ---
DATE OF SERVICE: 08/30/2018 SUBJECTIVE: Matt Neumann is a 62-year-old male, status post laparotomy with failed colostomy reversal due to rectal stricture and tear. He is tolerating his diet. He has no complaints. His pain is adequately relieved by oral analgesics. OBJECTIVE: VITAL SIGNS: Temperature 98.5 degrees, pulse, 85, blood pressure 109/72. LUNGS: Clear to auscultation. CARDIAC: Regular rate and rhythm without murmur or gallop. ABDOMEN: Soft. Bowel sounds present. Colostomy healthy. Wound well healed. Postoperative day #4. LABORATORY DATA: There are no labs today. ASSESSMENT AND PLAN: Doing well. PLAN: Discharge home today. Follow up with Dr. Anna as an outpatient per appointment. Job ID: [id number]
== END 2018-08-30 16:56 | disposition home or self-care (01) | DRG 330 ==
LOC: SDC 05:37 → SURG A 16:27
PROVIDERS: ADMIT Surgery; ATTEND Surgery
PROC: 0DQP0ZZ Repair Rectum, Open Approach (ICD-10-PCS; principal; 2018-08-26)
DX: K94.03 Colostomy malfunction (principal); K57.80 Diverticulitis of intestine, part unspecified, with perforation and abscess without bleeding
CPT/HCPCS: 36415; 36416; 80048; 85025; 88304; J0131; J0694; J1170; J1650; J2250; J2405; J3010; J3490; Q0163; S0028

== ENCOUNTER 2020-01-07 21:32 | Inpatient (IN) | payer OTHER ==
[~2020-01-07 21:32] MED LIST: Iopamidol-370 76% 500 ML 1 ML ONE
[2020-01-07 22:39] LABS: #Eosinphils 0.1 thou/uL (0.0-0.7); #Lymphocytes 1.1 thou/uL (1.20-3.40); #Monocytes 0.7 thou/uL (0.11-0.59); #Neutrophils 10.1 thou/uL (1.40-6.50); %Basophils 0.1 % (0.0-1.0); %Eosinophils 0.5 % (0.0-10.0); %Lymphocytes 8.9 % (21.0-51.0); %Monocytes 5.7 % (0.0-10.0); %Neutrophils 84.7 % (42.0-75.0); Hemoglobin 14.2 g/dL (14.0-18.0); Mean Corpuscular HGB CONC 32.4 g/dL (32.0-36.0); Mean Corpuscular Hemoglobin 29.5 pg (27.0-31.0); Mean Corpuscular Volume 91.1 fL (78.0-98.0); Mean Platelet Volume 6.7 fL (7.4-10.4); Platelet Count 264 thou/uL (130-400); RBC Distribution Width 12.5 % (11.5-14.5); Red Blood Cell (RBC) Count 4.83 mill/uL (4.70-6.10); White Blood Cell (WBC) Count 11.9 thou/uL (4.8-10.8)
[2020-01-07 23:04] LABS: ALT (SGPT) 20 U/L (8-55); AST (SGOT) 15 U/L (5-34); Albumin 3.9 g/dL (3.4-4.8); Alkaline Phosphatase 109 U/L (40-110); Anion Gap 14 mmol/L (10-20); BUN (Urea Nitrogen) 23 mg/dL (8.4-25.7); Bilirubin, Total 0.4 mg/dL (0.2-1.2); Calc. Creatinine Clearance 0 mL/min (70-130); Calcium 8.7 mg/dL (7.8-10.44); Carbon Dioxide 24 mmol/L (23-31); Chloride 103 mmol/L (98-107); Estimated GFR-MDRD 74; Glucose 118 mg/dL (80-115); Lipase 15 U/L (8-78); Potassium 3.3 mmol/L (3.5-5.1); Protein, Total 6.9 g/dL (5.8-8.1); Sodium 138 mmol/L (136-145)
[2020-01-08] MEDS ORDERED: Ondansetron PF 4 MG/2 ML Vial ONE
[2020-01-08] MEDS ORDERED: Benzocaine 20% Spray 60 ML CAN ONE (00:14)
[2020-01-08] MEDS ORDERED: Morphine 4 MG/ML VIAL SLOW IVP PRN (01:29)
[2020-01-08] MEDS ORDERED: Ondansetron ODT 4 MG TAB SL PRN (01:30)
[2020-01-08] MEDS ORDERED: Ondansetron PF 4 MG/2 ML Vial IVP PRN (01:30)
[2020-01-08 01:42] VITALS: BMI 44.5
[2020-01-08] MEDS: Sodium Chloride 0.9% 1,000 ML IV SCH ×2 (02:16→10:09)
--- NOTE | 2020-01-08 07:40 | CT ---
CT ABDOMEN AND PELVIS PERFORMED WITH CONTRAST ENHANCEMENT: HISTORY: Left lower quadrant abdomen pain and vomiting. COMPARISON: 05/10/2018 exam. FINDINGS: The lung bases are clear of infiltrates. Subsegmental atelectatic change is seen. Some fluid seen w ithin the distal esophagus could be on the basis of reflux. The liver shows some small peripheral areas of decreased attenuation. This could represent some smal l areas of scarring. It appears similar to the 2019 exam. There is some mild intrahepatic ductal pr ominence and there is some increased attenuation within the gallbladder compatible with gallstones. The spleen and pancreas regions appear unremarkable. Right and left adrenal glands are normal. Right and left kidneys are normal in size. Bilateral karey l cysts are identified. No significant periaortic or mesenteric adenopathy. There are 2 large herni as present. One is more of a ventral midline hernia which contains both small and large bowel withou t obstruction. The second is a left-sided large parastomal hernia. There is an element of obstructi on associated with this with some of the small bowel loops being mildly dilated and fluid-filled in t his region. This includes some dilated loops within the hernia itself as well as within the small ramana wel within the abdomen in this region. No free fluid. No pelvic lymphadenopathy or mass. There is a small diverticulum involving the right side of the bladder. IMPRESSION: 1. 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 This is associated with an element of obstru ction with some dilated fluid-filled small bowel loops. There is a second large midline ventral kate ia directly adjacent to this but separate not associated with any obstruction. 2. Gallstones. POS: [facility]
[2020-01-08] MEDS ORDERED: FLU VACC QS2020-21(65YR UP)/PF 240 MCG/0.7 ML SYRINGE IM ONE (09:00)
[2020-01-08 13:02] LABS: SARS-CoV-2 MS2 Positive; SARS-CoV-2 N Gene Negative; SARS-CoV-2 S Gene Negative; SARS-CoV-2 by NAA Not Detected (NotDetected); SARS-CoV-2 orf1ab Negative
[2020-01-08] MEDS ORDERED: Ibuprofen 600 MG TAB PO PRN (17:02)
[2020-01-08] MEDS ORDERED: Acetaminophen 500 MG TAB PO PRN (17:02)
[2020-01-08 19:12] VITALS: BP 124/81; TEMP 97.7
--- NOTE | 2020-01-09 | HP ---
HISTORY OF PRESENT ILLNESS: Matt Neumann is a 64-year-old male patient, presented to the emergency room because of abdominal pain. He did not have any nausea or vomiting. He was passing stool and flatus in his colostomy bag. He was seen in the emergency room, evaluated. His white count 11, hemoglobin 14. Comprehensive metabolic profile was normal. He underwent a CAT scan of the abdomen and pelvis revealing parastomal hernia, left lower quadrant colostomy, ventral hernia, morbid obesity. There was associated element of described obstruction with some dilated fluid-filled small bowel loops. He was noted to have gallstones. The patient was hospitalized. NG tube tried in the ER, but removed stating that he could not tolerate it. I saw him later that same day, 01/08/2020. The patient was not having any nausea, vomiting, or abdominal pain. He had gas and stool in his colostomy. He was not obstructed. He was started on full liquids. Regular diet as tolerated. He consumed full liquids without problems. ALLERGIES: NONE. TOBACCO: None. ALCOHOL: None. HOME MEDICATIONS: 1. Trazodone 50 mg at bedtime. 2. Colace daily. 3. Duloxetine 60 mg daily. 4. Vitamin B12 daily. 5. [place]-3 daily. 6. Lisinopril and hydrochlorothiazide 20/12.5 daily. 7. Cetirizine 10 mg daily. [id number]. PAST MEDICAL HISTORY: Hypertension, GERD, dyslipidemia, BPH, morbid obesity. 5 feet 7, 284 pounds, 44 BMI. On 05/10/2018, the patient presented with acute diverticulitis; perforated sigmoid diverticulitis, requiring laparotomy; sigmoid colectomy with end colostomy and Arjun's procedure. The patient apparently underwent outpatient colonoscopy, which was unremarkable. He returned to the operating room on 08/26/2018, for laparoscopic colostomy reversal. The colostomy was taken down and we will place rectal stump, dissected free, but while placing the EA stapler, there was concern about the rectal stump as he had a stricture described in the upper rectum. This rectum was inspected, noted to have a tear. Thus, anastomosis formed and colostomy replaced. The patient was felt not to be a candidate for colostomy reversal. Records were submitted to the [facility] and reviewed and the patient colostomy reversal at that facility. The patient developed a parastomal hernia and midline hernia. The patient this hospitalization desired DNR status. REVIEW OF SYSTEMS: Ten-point noncontributory otherwise. PHYSICAL EXAMINATION: VITAL SIGNS: 5 feet 7, 284 pounds, 44 BMI. 98.3 degrees, 74, 18, 151/82. HEAD EARS, EYES, NOSE AND THROAT: Unremarkable. LUNGS: Clear to auscultation. CARDIAC: Regular rate and rhythm without murmur or gallop. ABDOMEN: Soft, obese, large pannus dependent to his upper thighs. Colostomy, left lower quadrant with parastomal hernia. Midline incisional hernia with large hernia sac in the right lower quadrant. EXTREMITIES: Unremarkable. LABORATORY DATA: Comprehensive metabolic profile normal. Liver function tests normal. White count 11.9, hemoglobin 14.2. Serology; COVID negative. Of note, during the exam, colostomy was noted to have stool and flatus in the bag. By the time I am seeing him, he has not had any pain. ASSESSMENT AND PLAN: 1. Morbid obesity metabolic syndrome. 2. Hypertension. 3. Incisional hernia. 4. Parastomal hernia. 5. No evidence of bowel obstruction. The patient has a very complex situation. He probably is felt to have a permanent colostomy. The best way to resolve his parastomal hernia is colostomy reversal, but that may not be possible due to his rectal status, repeat proctoscopy could be considered. Consideration for bariatric surgery such as a sleeve gastrectomy to reduce his weight prior to attempted colostomy reversal or if his colostomy is felt to be permanent prior to incisional hernia repair and parastomal hernia repair could be considered. He does have asymptomatic gallstones. The patient is tolerating his diet. At this time, would recommend discharge home. Follow up with Dr. Anna as an outpatient. Job ID: [id number]
--- NOTE | 2020-01-09 01:46 | DIS ---
DATE OF ADMISSION: 01/07/2020 DATE OF DISCHARGE: 01/08/2020 DISCHARGE DIAGNOSES: 1. Morbid obesity. 2. Metabolic syndrome. 3. Hypertension. 4. Colostomy status. 5. Large incisional hernia. 6. Parastomal hernia. 7. Asymptomatic gallstones. 8. Previously attempted colostomy reversal, appreciating rectal stricture and tear, aborting colostomy reversal. 9. Prior history of diverticulitis and colostomy formation for peritonitis. The patient's records have been reviewed at the [facility] and felt not to be a candidate there are either for colostomy reversal. HISTORY: A 64-year-old male presenting with abdominal pain without nausea and vomiting, without fever, presented to the emergency room, undergoing a CAT scan revealing the incisional hernia and parastomal hernia with some mildly dilated small bowel loops. NG tube was placed, but not tolerated and removed. The patient was admitted to the floor. The patient continued to have stool and gas in his ostomy bag. By the time I saw him, his pain resolved. He had the incisional hernia and parastomal hernia. He was tolerating his diet and he is discharged to home to follow up with Dr. Anna. Consideration for repeating his proctoscopy with GI to look at his rectum to consider colostomy reversal could be given, if his colostomy is felt to be permanent, then weight reduction; prior to incisional hernia repair, a parastomal hernia repair could be considered, although morbidity would be great in this morbidly obese patient with 44 of BMI, consideration of bariatric surgery to reduce his weight and decrease his risk of surgery could be considered. Job ID: [id number]
[2020-01-09] MEDS ORDERED: Polyethylene Glycol 3350 17 GM Packet PO SCH (09:00)
== END 2020-01-08 17:59 | disposition home or self-care (01) | DRG 394 ==
LOC: ERS 21:32 → T4-A 23:56
PROVIDERS: ADMIT Specialist; ATTEND Specialist
DX: K43.5 Parastomal hernia without obstruction or gangrene (principal); Z68.41 Body mass index [BMI] 40.0-44.9, adult; K43.2 Incisional hernia without obstruction or gangrene; E78.00 Pure hypercholesterolemia, unspecified; I10 Essential (primary) hypertension; F32.9 Major depressive disorder, single episode, unspecified; E66.01 Morbid (severe) obesity due to excess calories; K21.9 Gastro-esophageal reflux disease without esophagitis; N40.0 Benign prostatic hyperplasia without lower urinary tract symptoms; K80.80 Other cholelithiasis without obstruction; Z93.3 Colostomy status; Z90.49 Acquired absence of other specified parts of digestive tract; E88.81 Metabolic syndrome and other insulin resistance; Z20.828 Contact with and (suspected) exposure to other viral communicable diseases
CPT/HCPCS: 36415; 74177; 80053; 83690; 85025; 87635; 90471; 90662; 96374; G0008; J2405; Q9967; U0003

== ENCOUNTER 2020-07-21 18:56 | Inpatient (IN) | payer MEDICARE, OTHER ==
[2020-07-21] MEDS ORDERED: Ondansetron PF 4 MG/2 ML Vial ONE (19:30)
[2020-07-21] MEDS ORDERED: Morphine 4 MG/ML VIAL ONE (19:30)
[2020-07-21 19:47] LABS: #Lymphocytes 0.9 thou/uL (1.20-3.40); #Monocytes 0.5 thou/uL (0.11-0.59); #Neutrophils 16.8 thou/uL (1.40-6.50); %Basophils 0.1 % (0.0-1.0); %Eosinophils 0.1 % (0.0-10.0); %Lymphocytes 4.8 % (21.0-51.0); %Monocytes 2.8 % (0.0-10.0); %Neutrophils 92.2 % (42.0-75.0); Hemoglobin 15.2 g/dL (14.0-18.0); Mean Corpuscular HGB CONC 31.9 g/dL (32.0-36.0); Mean Corpuscular Hemoglobin 30.3 pg (27.0-31.0); Mean Platelet Volume 6.9 fL (7.4-10.4); Platelet Count 263 thou/uL (130-400); RBC Distribution Width 12.3 % (11.5-14.5); Red Blood Cell (RBC) Count 5.01 mill/uL (4.70-6.10); White Blood Cell (WBC) Count 18.3 thou/uL (4.8-10.8)
[2020-07-21 20:08] LABS: ALT (SGPT) 16 U/L (8-55); AST (SGOT) 15 U/L (5-34); Albumin 4.2 g/dL (3.4-4.8); Alkaline Phosphatase 138 U/L (40-110); Anion Gap 16 mmol/L (10-20); BUN (Urea Nitrogen) 14 mg/dL (8.4-25.7); Bilirubin, Total 0.5 mg/dL (0.2-1.2); Calc. Creatinine Clearance 0 mL/min (70-130); Calcium 9.4 mg/dL (7.8-10.44); Carbon Dioxide 26 mmol/L (23-31); Chloride 101 mmol/L (98-107); Globulin 3.2 g/dL (2.4-3.5); Glucose 177 mg/dL (80-115); Lipase 12 U/L (8-78); Potassium 4.1 mmol/L (3.5-5.1); Protein, Total 7.4 g/dL (5.8-8.1); Sodium 139 mmol/L (136-145)
[2020-07-21] MEDS ORDERED: hydrALAZINE 20 MG/ML VIAL SLOW IVP PRN (23:00)
[2020-07-21] MEDS ORDERED: Dextrose 50% Abboject 50 ML SYRINGE SLOW IVP PRN (23:00)
[2020-07-21] MEDS ORDERED: Dextrose 5% in Water 1,000 ML IV PRN (23:00)
[2020-07-21] MEDS ORDERED: Ondansetron PF 4 MG/2 ML Vial IVP PRN (23:00)
[2020-07-21] MEDS ORDERED: Promethazine HCl 25 MG/ML VIAL IM PRN (23:00)
[2020-07-21] MEDS ORDERED: Morphine 2 MG/ML VIAL SLOW IVP PRN (23:00)
[2020-07-22 01:43] VITALS: BMI 38.7
[2020-07-22] MEDS: D5 1/2 NS w/20 mEq KCL 1,000 ML IV SCH ×3 (02:26→16:18)
[2020-07-22 03:44] LABS: SARS-CoV-2 NAA Rapid Test Not Detected (NotDetected)
[2020-07-22 05:54] LABS: #Lymphocytes 1.3 thou/uL (1.20-3.40); #Monocytes 0.9 thou/uL (0.11-0.59); #Neutrophils 9.9 thou/uL (1.40-6.50); %Basophils 0.3 % (0.0-1.0); %Eosinophils 0.3 % (0.0-10.0); %Lymphocytes 10.3 % (21.0-51.0); %Monocytes 7.7 % (0.0-10.0); %Neutrophils 81.4 % (42.0-75.0); Hemoglobin 14.5 g/dL (14.0-18.0); Mean Corpuscular HGB CONC 32.5 g/dL (32.0-36.0); Mean Corpuscular Hemoglobin 31.1 pg (27.0-31.0); Mean Corpuscular Volume 95.9 fL (78.0-98.0); Mean Platelet Volume 7.1 fL (7.4-10.4); Platelet Count 272 thou/uL (130-400); RBC Distribution Width 12.4 % (11.5-14.5); Red Blood Cell (RBC) Count 4.67 mill/uL (4.70-6.10); White Blood Cell (WBC) Count 12.1 thou/uL (4.8-10.8)
[2020-07-22 06:09] LABS: Anion Gap 13 mmol/L (10-20); BUN (Urea Nitrogen) 13 mg/dL (8.4-25.7); Calc. Creatinine Clearance 132 mL/min (70-130); Calcium 8.8 mg/dL (7.8-10.44); Carbon Dioxide 29 mmol/L (23-31); Chloride 104 mmol/L (98-107); Glucose 116 mg/dL (80-115); Potassium 3.6 mmol/L (3.5-5.1); Sodium 142 mmol/L (136-145)
[2020-07-22] MEDS: Ketorolac Tromethamine 30 MG/ML VIAL IVP SCH ×3 (07:28→17:32)
[2020-07-22] MEDS ORDERED: Famotidine/PF 20 mg/2ml Vial SLOW IVP SCH (09:00)
[2020-07-22] MEDS ORDERED: Famotidine 20 MG TAB PO SCH (09:00)
[2020-07-22 15:40] VITALS: BP 108/62; TEMP 97.6
== END 2020-07-22 19:05 | disposition home or self-care (01) | DRG 395 ==
LOC: ERS 18:56 → SURG B 23:00
PROVIDERS: ADMIT Surgery; ATTEND Surgery
DX: K43.3 Parastomal hernia with obstruction, without gangrene (principal); Z20.822 Contact with and (suspected) exposure to COVID-19; E66.01 Morbid (severe) obesity due to excess calories; I10 Essential (primary) hypertension; F32.9 Major depressive disorder, single episode, unspecified; N40.0 Benign prostatic hyperplasia without lower urinary tract symptoms; Z96.642 Presence of left artificial hip joint; E78.00 Pure hypercholesterolemia, unspecified; E78.5 Hyperlipidemia, unspecified; Z93.3 Colostomy status; Z79.899 Other long term (current) drug therapy; Z68.38 Body mass index [BMI] 38.0-38.9, adult
CPT/HCPCS: 36415; 74018; 74177; 80048; 80053; 83690; 85025; 96374; 96375; J2270; J2405; J3480; S0028; U0002

== ENCOUNTER 2020-10-29 14:41 | Inpatient (IN) | payer MEDICARE, OTHER ==
[2020-10-29] MEDS ORDERED: Ondansetron PF 4 MG/2 ML Vial ONE ×2 (14:49→16:41)
[2020-10-29] MEDS ORDERED: Morphine 4 MG/ML VIAL ONE (14:51)
[2020-10-29 15:32] LABS: #Lymphocytes 0.4 thou/uL (1.20-3.40); #Monocytes 0.3 thou/uL (0.11-0.59); #Neutrophils 14.8 thou/uL (1.40-6.50); %Basophils 0.1 % (0.0-1.0); %Eosinophils 0.1 % (0.0-10.0); %Lymphocytes 2.7 % (21.0-51.0); %Monocytes 1.6 % (0.0-10.0); %Neutrophils 95.5 % (42.0-75.0); Hemoglobin 16.3 g/dL (14.0-18.0); Mean Corpuscular Hemoglobin 31.7 pg (27.0-31.0); Mean Platelet Volume 6.7 fL (7.4-10.4); Platelet Count 265 thou/uL (130-400); RBC Distribution Width 12.3 % (11.5-14.5); Red Blood Cell (RBC) Count 5.12 mill/uL (4.70-6.10); White Blood Cell (WBC) Count 15.5 thou/uL (4.8-10.8)
[2020-10-29 15:48] LABS: ALT (SGPT) 20 U/L (8-55); AST (SGOT) 15 U/L (5-34); Albumin 4.5 g/dL (3.4-4.8); Alkaline Phosphatase 115 U/L (40-110); Anion Gap 12 mmol/L (10-20); BUN (Urea Nitrogen) 16 mg/dL (8.4-25.7); Bilirubin, Total 0.5 mg/dL (0.2-1.2); Calc. Creatinine Clearance 0 mL/min (70-130); Calcium 9.7 mg/dL (7.8-10.44); Carbon Dioxide 28 mmol/L (23-31); Chloride 102 mmol/L (98-107); Globulin 3.3 g/dL (2.4-3.5); Glucose 162 mg/dL (80-115); Lipase 15 U/L (8-78); Potassium 4.4 mmol/L (3.5-5.1); Protein, Total 7.8 g/dL (5.8-8.1); Sodium 138 mmol/L (136-145)
[2020-10-29] MEDS ORDERED: Lorazepam 2 MG/ML VIAL ONE (19:25)
[2020-10-29] MEDS ORDERED: Benzocaine 20% Spray 60 ML CAN ONE (19:25)
[2020-10-29] MEDS ORDERED: Piperacillin/Tazobactam 3.375 GM VIAL ONE (19:26)
[2020-10-30 01:52] LABS: Bilirubin Negative (Negative); Blood, Urine Negative (Negative); Clarity Clear (Clear); Glucose, Urine (Dipstick) Normal (Negative); Ketone, Urine 20 mg/dL (Negative); Leukocyte Negative Leu/uL (Negative); Nitrite Negative (Negative); Protein, Urine (Dipstick) 10 mg/dL (Neg-Trace); Urobilinogen Normal mg/dL (Less than 2)
[2020-10-30 01:55] LABS: Specific Gravity, Urine 1.049 (1.002-1.036)
[2020-10-30] MEDS ORDERED: Piperacillin/Tazobactam 3.375 GM in Sodium Chloride 0.9% 100 ML IVPB SCH (02:00)
[2020-10-30] MEDS ORDERED: Sodium Chloride 0.9% 1,000 ML IV SCH (02:15)
[2020-10-30] MEDS ORDERED: Ondansetron ODT 4 MG TAB SL PRN (02:15)
[2020-10-30] MEDS ORDERED: Acetaminophen 325 MG TAB PO PRN ×2 (02:15→03:15)
[2020-10-30] MEDS ORDERED: Ondansetron PF 4 MG/2 ML Vial IVP PRN ×2 (02:15→03:15)
[2020-10-30 02:49] VITALS: BMI 34.4
[2020-10-30 02:49] LABS: SARS-CoV-2 NAA Rapid Test Not Detected (NotDetected)
[2020-10-30] MEDS ORDERED: hydrALAZINE 20 MG/ML VIAL SLOW IVP PRN (03:19)
[2020-10-30] MEDS: Sodium Chloride 0.9% 1,000 ML IV SCH ×2 (03:42→17:20)
[2020-10-30 05:41] LABS: #Lymphocytes 1.2 thou/uL (1.20-3.40); #Monocytes 0.9 thou/uL (0.11-0.59); #Neutrophils 9.9 thou/uL (1.40-6.50); %Basophils 0.3 % (0.0-1.0); %Eosinophils 0.2 % (0.0-10.0); %Lymphocytes 10.2 % (21.0-51.0); %Monocytes 7.3 % (0.0-10.0); Hemoglobin 14.1 g/dL (14.0-18.0); Mean Corpuscular HGB CONC 32.6 g/dL (32.0-36.0); Mean Corpuscular Hemoglobin 31.6 pg (27.0-31.0); Mean Platelet Volume 6.6 fL (7.4-10.4); Platelet Count 236 thou/uL (130-400); RBC Distribution Width 12.4 % (11.5-14.5); Red Blood Cell (RBC) Count 4.46 mill/uL (4.70-6.10); White Blood Cell (WBC) Count 12.1 thou/uL (4.8-10.8)
[2020-10-30 06:02] LABS: Anion Gap 9 mmol/L (10-20); BUN (Urea Nitrogen) 14 mg/dL (8.4-25.7); Calc. Creatinine Clearance 127 mL/min (70-130); Calcium 8.7 mg/dL (7.8-10.44); Carbon Dioxide 30 mmol/L (23-31); Chloride 107 mmol/L (98-107); Glucose 96 mg/dL (80-115); Potassium 3.8 mmol/L (3.5-5.1); Sodium 142 mmol/L (136-145)
[2020-10-30] MEDS: Piperacillin/Tazobactam 3.375 GM in Sodium Chloride 0.9% 100 ML IVPB SCH ×2 (10:04→17:20)
[2020-10-31] MEDS: Piperacillin/Tazobactam 3.375 GM in Sodium Chloride 0.9% 100 ML IVPB SCH ×3 (02:55→17:38)
[2020-10-31] MEDS: Sodium Chloride 0.9% 1,000 ML IV SCH ×2 (05:33)
[2020-10-31 05:54] LABS: #Basophils 0.1 thou/uL (0.0-0.2); #Eosinphils 0.1 thou/uL (0.0-0.7); #Lymphocytes 0.9 thou/uL (1.20-3.40); #Monocytes 0.7 thou/uL (0.11-0.59); #Neutrophils 8.9 thou/uL (1.40-6.50); %Basophils 0.6 % (0.0-1.0); %Eosinophils 0.6 % (0.0-10.0); %Monocytes 6.6 % (0.0-10.0); %Neutrophils 84.1 % (42.0-75.0); Hemoglobin 13.6 g/dL (14.0-18.0); Mean Corpuscular HGB CONC 31.8 g/dL (32.0-36.0); Mean Corpuscular Hemoglobin 31.2 pg (27.0-31.0); Mean Platelet Volume 6.8 fL (7.4-10.4); Platelet Count 246 thou/uL (130-400); RBC Distribution Width 12.3 % (11.5-14.5); Red Blood Cell (RBC) Count 4.36 mill/uL (4.70-6.10); White Blood Cell (WBC) Count 10.6 thou/uL (4.8-10.8)
[2020-10-31 06:19] LABS: Anion Gap 9 mmol/L (10-20); BUN (Urea Nitrogen) 17 mg/dL (8.4-25.7); Calc. Creatinine Clearance 130 mL/min (70-130); Calcium 8.5 mg/dL (7.8-10.44); Carbon Dioxide 31 mmol/L (23-31); Chloride 110 mmol/L (98-107); Glucose 98 mg/dL (80-115); Magnesium 2.1 mg/dL (1.6-2.6); Potassium 3.5 mmol/L (3.5-5.1); Sodium 146 mmol/L (136-145)
[2020-10-31] MEDS: Dextrose 5 %-0.45 % NaCl 1,000 ML IV SCH (10:38)
[2020-11-01] MEDS: Dextrose 5 %-0.45 % NaCl 1,000 ML IV SCH (00:36)
[2020-11-01] MEDS: Piperacillin/Tazobactam 3.375 GM in Sodium Chloride 0.9% 100 ML IVPB SCH ×2 (02:50→11:44)
[2020-11-01 06:42] LABS: #Basophils 0.1 thou/uL (0.0-0.2); #Eosinphils 0.1 thou/uL (0.0-0.7); #Lymphocytes 1.3 thou/uL (1.20-3.40); #Monocytes 0.8 thou/uL (0.11-0.59); #Neutrophils 5.9 thou/uL (1.40-6.50); %Basophils 0.7 % (0.0-1.0); %Eosinophils 1.4 % (0.0-10.0); %Monocytes 9.4 % (0.0-10.0); %Neutrophils 72.4 % (42.0-75.0); Hemoglobin 12.8 g/dL (14.0-18.0); Mean Corpuscular HGB CONC 32.7 g/dL (32.0-36.0); Mean Corpuscular Hemoglobin 32.2 pg (27.0-31.0); Mean Corpuscular Volume 98.5 fL (78.0-98.0); Platelet Count 202 thou/uL (130-400); RBC Distribution Width 12.4 % (11.5-14.5); Red Blood Cell (RBC) Count 3.96 mill/uL (4.70-6.10); White Blood Cell (WBC) Count 8.1 thou/uL (4.8-10.8)
[2020-11-01 07:01] VITALS: BP 113/78; TEMP 97.6
[2020-11-01 07:10] LABS: Anion Gap 8 mmol/L (10-20); BUN (Urea Nitrogen) 12 mg/dL (8.4-25.7); Calc. Creatinine Clearance 127 mL/min (70-130); Calcium 8.1 mg/dL (7.8-10.44); Carbon Dioxide 27 mmol/L (23-31); Chloride 108 mmol/L (98-107); Glucose 105 mg/dL (80-115); Potassium 3.4 mmol/L (3.5-5.1); Sodium 140 mmol/L (136-145)
== END 2020-11-01 17:46 | disposition home or self-care (01) | DRG 394 ==
LOC: ERS 14:41 → T4-B 21:31
PROVIDERS: ADMIT Internal Medicine; ATTEND Internal Medicine
PROC: 0D9670Z Drainage of Stomach with Drainage Device, Via Natural or Artificial Opening (ICD-10-PCS; principal; 2020-10-29)
PROC: BD14YZZ Fluoroscopy of Colon using Other Contrast (ICD-10-PCS; 2020-11-01)
DX: K43.3 Parastomal hernia with obstruction, without gangrene (principal); E87.0 Hyperosmolality and hypernatremia; Z20.822 Contact with and (suspected) exposure to COVID-19; E11.9 Type 2 diabetes mellitus without complications; G47.33 Obstructive sleep apnea (adult) (pediatric); F32.9 Major depressive disorder, single episode, unspecified; D72.829 Elevated white blood cell count, unspecified; K43.6 Other and unspecified ventral hernia with obstruction, without gangrene; E78.5 Hyperlipidemia, unspecified; E66.01 Morbid (severe) obesity due to excess calories; E78.00 Pure hypercholesterolemia, unspecified; Z99.89 Dependence on other enabling machines and devices; Z79.899 Other long term (current) drug therapy; Z87.891 Personal history of nicotine dependence; Z68.38 Body mass index [BMI] 38.0-38.9, adult
CPT/HCPCS: 0240U; 36415; 71045; 74019; 74177; 74270; 80048; 80053; 81003; 83605; 83690; 83735; 84484; 85025; 87086; 94660; 96365; 96375; 96376; J2060; J2270; J2405; J2543; J3490; Q9967

== ENCOUNTER 2021-03-25 14:04 | Emergency (ER) | payer MEDICARE, OTHER ==
[2021-03-25] MEDS ORDERED: Morphine 4 MG/ML VIAL ONE (14:19)
[2021-03-25 14:57] LABS: #Eosinphils 0.1 thou/uL (0.0-0.7); #Lymphocytes 1.4 thou/uL (1.20-3.40); #Monocytes 0.6 thou/uL (0.11-0.59); #Neutrophils 6.2 thou/uL (1.40-6.50); %Basophils 0.5 % (0.0-1.0); %Lymphocytes 16.6 % (21.0-51.0); %Monocytes 6.8 % (0.0-10.0); %Neutrophils 75.1 % (42.0-75.0); Hemoglobin 16.8 g/dL (14.0-18.0); Mean Corpuscular HGB CONC 32.8 g/dL (32.0-36.0); Mean Corpuscular Hemoglobin 32.1 pg (27.0-31.0); Mean Corpuscular Volume 97.9 fL (78.0-98.0); Mean Platelet Volume 6.4 fL (7.4-10.4); Platelet Count 210 thou/uL (130-400); RBC Distribution Width 12.2 % (11.5-14.5); Red Blood Cell (RBC) Count 5.24 mill/uL (4.70-6.10); White Blood Cell (WBC) Count 8.2 thou/uL (4.8-10.8)
[2021-03-25 15:21] LABS: Albumin 4.3 g/dL (3.4-4.8); Alkaline Phosphatase 112 U/L (40-110); Anion Gap 16 mmol/L (10-20); BUN (Urea Nitrogen) 18 mg/dL (8.4-25.7); Bilirubin, Total 0.4 mg/dL (0.2-1.2); Calc. Creatinine Clearance 0 mL/min (70-130); Calcium 9.7 mg/dL (7.8-10.44); Carbon Dioxide 21 mmol/L (23-31); Chloride 106 mmol/L (98-107); Globulin 3.3 g/dL (2.4-3.5); Glucose 187 mg/dL (80-115); Potassium 3.5 mmol/L (3.5-5.1); Protein, Total 7.6 g/dL (5.8-8.1); Sodium 139 mmol/L (136-145)
[2021-03-25 15:22] LABS: ALT (SGPT) 25 U/L (8-55); AST (SGOT) 15 U/L (5-34); Magnesium 2.2 mg/dL (1.6-2.6)
== END 2021-03-25 18:02 | disposition home or self-care (01) ==
LOC: ERS 14:04
DX: R10.32 Left lower quadrant pain (principal); R11.2 Nausea with vomiting, unspecified; I10 Essential (primary) hypertension; R73.03 Prediabetes; E78.5 Hyperlipidemia, unspecified; E78.00 Pure hypercholesterolemia, unspecified
CPT/HCPCS: 36415; 74177; 80053; 83735; 85025; 93005; 96374; J2270; Q9967

== ENCOUNTER 2021-04-09 15:41 | Emergency (ER) | payer MEDICARE, OTHER ==
[2021-04-09] MEDS ORDERED: Morphine 4 MG/ML VIAL ONE (16:28)
[2021-04-09] MEDS ORDERED: Ondansetron PF 4 MG/2 ML Vial ONE (16:28)
[2021-04-09 16:51] LABS: #Lymphocytes 0.8 thou/uL (1.20-3.40); #Monocytes 0.5 thou/uL (0.11-0.59); #Neutrophils 3.5 thou/uL (1.40-6.50); %Basophils 0.1 % (0.0-1.0); %Eosinophils 0.8 % (0.0-10.0); %Lymphocytes 16.1 % (21.0-51.0); %Monocytes 9.9 % (0.0-10.0); %Neutrophils 73.2 % (42.0-75.0); Hemoglobin 15.3 g/dL (14.0-18.0); Mean Corpuscular HGB CONC 32.7 g/dL (32.0-36.0); Mean Corpuscular Hemoglobin 31.9 pg (27.0-31.0); Mean Corpuscular Volume 97.6 fL (78.0-98.0); Mean Platelet Volume 6.4 fL (7.4-10.4); Platelet Count 188 thou/uL (130-400); Red Blood Cell (RBC) Count 4.78 mill/uL (4.70-6.10); White Blood Cell (WBC) Count 4.8 thou/uL (4.8-10.8)
[2021-04-09 17:03] LABS: ALT (SGPT) 19 U/L (8-55); AST (SGOT) 14 U/L (5-34); Albumin 3.7 g/dL (3.4-4.8); Alkaline Phosphatase 101 U/L (40-110); Anion Gap 10 mmol/L (10-20); BUN (Urea Nitrogen) 14 mg/dL (8.4-25.7); Bilirubin, Total 0.4 mg/dL (0.2-1.2); Calc. Creatinine Clearance 0 mL/min (70-130); Carbon Dioxide 32 mmol/L (23-31); Chloride 102 mmol/L (98-107); Globulin 3.1 g/dL (2.4-3.5); Glucose 99 mg/dL (80-115); Potassium 4.5 mmol/L (3.5-5.1); Protein, Total 6.8 g/dL (5.8-8.1); Sodium 139 mmol/L (136-145)
== END 2021-04-09 21:31 | disposition home or self-care (01) ==
LOC: ERS 15:41
DX: K43.9 Ventral hernia without obstruction or gangrene (principal); E78.5 Hyperlipidemia, unspecified; I10 Essential (primary) hypertension; Z79.899 Other long term (current) drug therapy
CPT/HCPCS: 36415; 74177; 80053; 85025; 96374; 96375; J2270; J2405

== ENCOUNTER 2021-04-14 15:51 | Emergency (ER) | payer MEDICARE, OTHER ==
[2021-04-14] MEDS ORDERED: Ondansetron PF 4 MG/2 ML Vial ONE (16:08)
[2021-04-14 16:47] LABS: #Lymphocytes 1.3 thou/uL (1.20-3.40); #Monocytes 0.7 thou/uL (0.11-0.59); #Neutrophils 7.5 thou/uL (1.40-6.50); %Basophils 0.2 % (0.0-1.0); %Eosinophils 0.5 % (0.0-10.0); %Lymphocytes 13.8 % (21.0-51.0); %Monocytes 7.4 % (0.0-10.0); %Neutrophils 78.2 % (42.0-75.0); Hemoglobin 17.4 g/dL (14.0-18.0); Mean Corpuscular HGB CONC 32.3 g/dL (32.0-36.0); Mean Corpuscular Hemoglobin 30.9 pg (27.0-31.0); Mean Corpuscular Volume 95.5 fL (78.0-98.0); Mean Platelet Volume 6.5 fL (7.4-10.4); Platelet Count 320 thou/uL (130-400); RBC Distribution Width 11.9 % (11.5-14.5); Red Blood Cell (RBC) Count 5.63 mill/uL (4.70-6.10); White Blood Cell (WBC) Count 9.6 thou/uL (4.8-10.8)
[2021-04-14 17:08] LABS: ALT (SGPT) 17 U/L (8-55); AST (SGOT) 16 U/L (5-34); Albumin 4.2 g/dL (3.4-4.8); Alkaline Phosphatase 124 U/L (40-110); Anion Gap 21 mmol/L (10-20); BUN (Urea Nitrogen) 17 mg/dL (8.4-25.7); Bilirubin, Total 0.7 mg/dL (0.2-1.2); Calc. Creatinine Clearance 0 mL/min (70-130); Calcium 10.1 mg/dL (7.8-10.44); Carbon Dioxide 22 mmol/L (23-31); Chloride 98 mmol/L (98-107); Globulin 3.5 g/dL (2.4-3.5); Glucose 148 mg/dL (80-115); Potassium 3.6 mmol/L (3.5-5.1); Protein, Total 7.7 g/dL (5.8-8.1); Sodium 137 mmol/L (136-145)
[2021-04-14] MEDS ORDERED: Piperacillin/Tazobactam 4.5 GM VIAL ONE (19:17)
== END 2021-04-14 21:52 ==
LOC: ERS 15:51
DX: K43.9 Ventral hernia without obstruction or gangrene (principal); E78.5 Hyperlipidemia, unspecified; E78.00 Pure hypercholesterolemia, unspecified; I10 Essential (primary) hypertension; J45.909 Unspecified asthma, uncomplicated; Z79.899 Other long term (current) drug therapy
CPT/HCPCS: 36415; 71045; 74177; 80053; 83605; 85025; 87040; 93005; 94760; 96365; 96375; J2405; J2543; Q9967

== ENCOUNTER 2021-04-16 12:12 | Inpatient (IN) | payer MEDICARE, OTHER ==
[2021-04-16] MEDS ORDERED: Ondansetron PF 4 MG/2 ML Vial ONE (13:03)
[2021-04-16] MEDS ORDERED: Morphine 4 MG/ML VIAL ONE ×2 (13:03→15:53)
[2021-04-16 13:39] LABS: #Lymphocytes 0.8 thou/uL (1.20-3.40); #Monocytes 0.5 thou/uL (0.11-0.59); #Neutrophils 6.4 thou/uL (1.40-6.50); %Basophils 0.4 % (0.0-1.0); %Eosinophils 0.6 % (0.0-10.0); %Lymphocytes 9.8 % (21.0-51.0); %Monocytes 6.8 % (0.0-10.0); %Neutrophils 82.4 % (42.0-75.0); Hemoglobin 14.7 g/dL (14.0-18.0); Mean Corpuscular HGB CONC 32.2 g/dL (32.0-36.0); Mean Corpuscular Hemoglobin 31.4 pg (27.0-31.0); Mean Corpuscular Volume 97.3 fL (78.0-98.0); Mean Platelet Volume 6.2 fL (7.4-10.4); Platelet Count 314 thou/uL (130-400); RBC Distribution Width 11.9 % (11.5-14.5); White Blood Cell (WBC) Count 7.7 thou/uL (4.8-10.8)
[2021-04-16 14:06] LABS: ALT (SGPT) 14 U/L (8-55); AST (SGOT) 14 U/L (5-34); Albumin 3.8 g/dL (3.4-4.8); Alkaline Phosphatase 100 U/L (40-110); Anion Gap 11 mmol/L (10-20); BUN (Urea Nitrogen) 7 mg/dL (8.4-25.7); Bilirubin, Total 0.5 mg/dL (0.2-1.2); Calc. Creatinine Clearance 0 mL/min (70-130); Calcium 8.8 mg/dL (7.8-10.44); Carbon Dioxide 28 mmol/L (23-31); Chloride 103 mmol/L (98-107); Globulin 2.8 g/dL (2.4-3.5); Glucose 120 mg/dL (80-115); Lipase 17 U/L (8-78); Potassium 3.3 mmol/L (3.5-5.1); Protein, Total 6.6 g/dL (5.8-8.1); Sodium 139 mmol/L (136-145)
[2021-04-16] MEDS ORDERED: Piperacillin/Tazobactam 4.5 GM VIAL ONE (15:53)
[2021-04-16] MEDS ORDERED: Ondansetron ODT 4 MG TAB PO PRN (16:39)
[2021-04-16] MEDS ORDERED: hydrALAZINE 20 MG/ML VIAL SLOW IVP PRN (16:39)
[2021-04-16] MEDS ORDERED: traMADol HCl 50 MG TAB PO PRN (16:39)
[2021-04-16] MEDS ORDERED: Morphine 4 MG/ML VIAL SLOW IVP PRN ×2 (16:39→16:49)
[2021-04-16] MEDS ORDERED: Ondansetron PF 4 MG/2 ML Vial IVP PRN (16:39)
[2021-04-16] MEDS ORDERED: Magnesium Citrate 300 ML BOT PO SCH (16:45)
[2021-04-16 18:27] LABS: SARS-CoV-2 NAA Rapid Test DETECTED (NotDetected)
[2021-04-16 18:32] VITALS: BMI 31.9
[2021-04-16] MEDS: D5 1/2 NS w/20 mEq KCL 1,000 ML IV SCH ×2 (19:56→21:20)
[2021-04-16] MEDS: Enoxaparin Sodium 40 MG/0.4 ML SYRINGE SC SCH (21:19)
[2021-04-16] MEDS: Tamsulosin HCl 0.4 MG CAP PO SCH (21:20)
[2021-04-16] MEDS: traZODone HCl 50 MG TAB PO SCH (21:20)
[2021-04-16] MEDS: Famotidine/PF 20 mg/2ml Vial SLOW IVP SCH (21:20)
[2021-04-16] MEDS: Famotidine 20 MG TAB PO SCH (21:20)
[2021-04-17] MEDS: D5 1/2 NS w/20 mEq KCL 1,000 ML IV SCH ×3 (05:30→18:44)
[2021-04-17] MEDS ORDERED: Magnesium Citrate 300 ML BOT PO SCH (07:00)
[2021-04-17] MEDS: DULoxetine 60 MG CAP PO SCH (08:52)
[2021-04-17] MEDS: Lisinopril/Hydrochlorothiazide 20 mg/12.5 mg Tablet PO SCH (08:52)
[2021-04-17] MEDS: Loratadine 10 MG TAB PO SCH (08:52)
[2021-04-17] MEDS: Famotidine 20 MG TAB PO SCH ×2 (08:53→20:50)
[2021-04-17] MEDS: Famotidine/PF 20 mg/2ml Vial SLOW IVP SCH ×2 (08:54→20:51)
[2021-04-17 10:39] LABS: Anion Gap 9 mmol/L (10-20); BUN (Urea Nitrogen) 6 mg/dL (8.4-25.7); Calc. Creatinine Clearance 106 mL/min (70-130); Calcium 8.8 mg/dL (7.8-10.44); Carbon Dioxide 30 mmol/L (23-31); Chloride 104 mmol/L (98-107); Glucose 108 mg/dL (80-115); Sodium 139 mmol/L (136-145)
[2021-04-17] MEDS ORDERED: GoLYTELY 4,000 ml Bottle PO SCH (11:45)
[2021-04-17] MEDS: Enoxaparin Sodium 40 MG/0.4 ML SYRINGE SC SCH (20:50)
[2021-04-17] MEDS: traZODone HCl 50 MG TAB PO SCH (20:50)
[2021-04-17] MEDS: Tamsulosin HCl 0.4 MG CAP PO SCH (20:50)
[2021-04-18] MEDS: D5 1/2 NS w/20 mEq KCL 1,000 ML IV SCH ×3 (02:46→20:09)
[2021-04-18] MEDS: Loratadine 10 MG TAB PO SCH (09:20)
[2021-04-18] MEDS: Lisinopril/Hydrochlorothiazide 20 mg/12.5 mg Tablet PO SCH (09:20)
[2021-04-18] MEDS: DULoxetine 60 MG CAP PO SCH (09:20)
[2021-04-18] MEDS: Famotidine 20 MG TAB PO SCH ×2 (09:20→21:00)
[2021-04-18] MEDS: Famotidine/PF 20 mg/2ml Vial SLOW IVP SCH ×2 (09:21→21:01)
[2021-04-18] MEDS: traZODone HCl 50 MG TAB PO SCH (21:00)
[2021-04-18] MEDS: Enoxaparin Sodium 40 MG/0.4 ML SYRINGE SC SCH (21:00)
[2021-04-18] MEDS: Tamsulosin HCl 0.4 MG CAP PO SCH (21:00)
[2021-04-18] MEDS: Fluticasone Propionate Nasal Spray 16 gm Bottle NASAL PRN (21:36)
[2021-04-19] MEDS: D5 1/2 NS w/20 mEq KCL 1,000 ML IV SCH ×3 (03:13→21:57)
[2021-04-19] MEDS: Famotidine/PF 20 mg/2ml Vial SLOW IVP SCH ×2 (08:56→21:48)
[2021-04-19] MEDS: DULoxetine 60 MG CAP PO SCH (09:01)
[2021-04-19] MEDS: Loratadine 10 MG TAB PO SCH (09:01)
[2021-04-19] MEDS: Famotidine 20 MG TAB PO SCH ×2 (09:01→21:48)
[2021-04-19] MEDS ORDERED: Fentanyl 100 MCG/2 ML VIAL ONE ×2 (11:08→16:25)
[2021-04-19] MEDS ORDERED: SUGAMMADEX SODIUM 200 MG/2 ML VIAL ONE (11:08)
[2021-04-19] MEDS ORDERED: Famotidine/PF 20 mg/2ml Vial ONE (11:08)
[2021-04-19] MEDS ORDERED: Fentanyl 250 MCG/5 ML VIAL ONE (11:08)
[2021-04-19] MEDS: Lisinopril/Hydrochlorothiazide 20 mg/12.5 mg Tablet PO SCH (11:38)
[2021-04-19] MEDS ORDERED: Bupivacaine 0.25% HCL 30 ML VIAL ONE (11:45)
[2021-04-19] MEDS ORDERED: Xylocaine 1% w/ Epi 1:100K 10 ML VIAL ONE (11:45)
[2021-04-19] MEDS ORDERED: PROPOFOL 200 MG/20 ML VIAL ONE (12:20)
[2021-04-19] MEDS ORDERED: ePHEDrine 50 MG/ML VIAL ONE (12:20)
[2021-04-19] MEDS ORDERED: Metoclopramide HCl 10 MG/2 ML VIAL ONE (12:20)
[2021-04-19] MEDS ORDERED: Lidocaine 1% PF 5 ML VIAL ONE (12:20)
[2021-04-19] MEDS ORDERED: Ondansetron PF 4 MG/2 ML Vial ONE (12:20)
[2021-04-19] MEDS ORDERED: Rocuronium Bromide 10 MG/ML (10ML VIAL) ONE (12:20)
[2021-04-19] MEDS ORDERED: PHENYLEPHRINE-NS 100 MCG/ML 10 ML SYRINGE ONE (12:20)
[2021-04-19] MEDS ORDERED: Ketorolac Tromethamine 30 MG/ML VIAL ONE (12:20)
[2021-04-19] MEDS ORDERED: ceFOXitin 1 GM VIAL ONE ×2 (12:46→15:28)
[2021-04-19] MEDS ORDERED: diphenhydrAMINE 50 MG/ML VIAL IVP PRN (16:05)
[2021-04-19] MEDS ORDERED: diphenhydrAMINE 50 MG/ML VIAL IM PRN (16:05)
[2021-04-19] MEDS ORDERED: Ondansetron HCl/PF 4 MG/2 ML Vial IVP PRN (16:05)
[2021-04-19] MEDS ORDERED: Promethazine HCl 25 MG/ML VIAL IM PRN ×2 (16:05)
[2021-04-19] MEDS ORDERED: Ondansetron PF 4 MG/2 ML Vial IVP PRN (16:05)
[2021-04-19] MEDS ORDERED: diphenhydrAMINE 25 MG CAP PO PRN (16:05)
[2021-04-19] MEDS ORDERED: Zolpidem Tartrate 5 MG TAB PO PRN (16:05)
[2021-04-19] MEDS ORDERED: HYDROmorphone 10 mg/100 ml CADD IVPB PRN (16:05)
[2021-04-19] MEDS ORDERED: Naloxone HCl 0.4 mg/ml Vial IV PRN (16:05)
[2021-04-19] MEDS ORDERED: Promethazine HCl 25 MG/ML VIAL IVPB PRN (16:05)
[2021-04-19] MEDS ORDERED: Communication Order-Pharmacy FS SCH (16:15)
[2021-04-19] MEDS: traZODone HCl 50 MG TAB PO SCH (21:48)
[2021-04-19] MEDS: Tamsulosin HCl 0.4 MG CAP PO SCH (21:48)
[2021-04-19] MEDS: Enoxaparin Sodium 40 MG/0.4 ML SYRINGE SC SCH (21:49)
[2021-04-20] MEDS: D5 1/2 NS w/20 mEq KCL 1,000 ML IV SCH ×3 (06:20→21:52)
[2021-04-20] MEDS: Lisinopril/Hydrochlorothiazide 20 mg/12.5 mg Tablet PO SCH (09:23)
[2021-04-20] MEDS: Famotidine/PF 20 mg/2ml Vial SLOW IVP SCH ×2 (09:23→21:52)
[2021-04-20] MEDS: Loratadine 10 MG TAB PO SCH (09:23)
[2021-04-20] MEDS: Famotidine 20 MG TAB PO SCH ×2 (09:23→21:51)
[2021-04-20] MEDS: DULoxetine 60 MG CAP PO SCH (09:23)
[2021-04-20 14:45] LABS: #Lymphocytes 0.6 thou/uL (1.20-3.40); #Monocytes 0.9 thou/uL (0.11-0.59); #Neutrophils 9.9 thou/uL (1.40-6.50); %Lymphocytes 5.3 % (21.0-51.0); %Monocytes 7.9 % (0.0-10.0); %Neutrophils 86.8 % (42.0-75.0); Hemoglobin 13.9 g/dL (14.0-18.0); Mean Corpuscular Hemoglobin 31.6 pg (27.0-31.0); Mean Corpuscular Volume 98.9 fL (78.0-98.0); Mean Platelet Volume 6.5 fL (7.4-10.4); Platelet Count 318 thou/uL (130-400); RBC Distribution Width 11.9 % (11.5-14.5); White Blood Cell (WBC) Count 11.4 thou/uL (4.8-10.8)
[2021-04-20 15:05] LABS: Anion Gap 11 mmol/L (10-20); BUN (Urea Nitrogen) 9 mg/dL (8.4-25.7); Calc. Creatinine Clearance 117 mL/min (70-130); Calcium 8.4 mg/dL (7.8-10.44); Carbon Dioxide 28 mmol/L (23-31); Chloride 103 mmol/L (98-107); Glucose 124 mg/dL (80-115); Potassium 4.5 mmol/L (3.5-5.1); Sodium 137 mmol/L (136-145)
[2021-04-20] MEDS: Fluticasone Propionate Nasal Spray 16 gm Bottle NASAL PRN (21:48)
[2021-04-20] MEDS: Enoxaparin Sodium 40 MG/0.4 ML SYRINGE SC SCH (21:51)
[2021-04-20] MEDS: traZODone HCl 50 MG TAB PO SCH (21:51)
[2021-04-20] MEDS: Tamsulosin HCl 0.4 MG CAP PO SCH (21:51)
[2021-04-21] MEDS: D5 1/2 NS w/20 mEq KCL 1,000 ML IV SCH ×4 (05:56→23:46)
[2021-04-21] MEDS: Famotidine/PF 20 mg/2ml Vial SLOW IVP SCH ×2 (09:00→21:06)
[2021-04-21] MEDS: Lisinopril/Hydrochlorothiazide 20 mg/12.5 mg Tablet PO SCH (09:06)
[2021-04-21] MEDS: Famotidine 20 MG TAB PO SCH ×2 (09:06→21:05)
[2021-04-21] MEDS: DULoxetine 60 MG CAP PO SCH (09:06)
[2021-04-21] MEDS: Loratadine 10 MG TAB PO SCH (09:06)
[2021-04-21] MEDS: Tamsulosin HCl 0.4 MG CAP PO SCH (21:06)
[2021-04-21] MEDS: Enoxaparin Sodium 40 MG/0.4 ML SYRINGE SC SCH (21:06)
[2021-04-21] MEDS: traZODone HCl 50 MG TAB PO SCH (21:06)
[2021-04-22] MEDS: D5 1/2 NS w/20 mEq KCL 1,000 ML IV SCH (06:12)
[2021-04-22] MEDS: Lisinopril/Hydrochlorothiazide 20 mg/12.5 mg Tablet PO SCH (08:56)
[2021-04-22] MEDS: Loratadine 10 MG TAB PO SCH (08:56)
[2021-04-22] MEDS: DULoxetine 60 MG CAP PO SCH (08:56)
[2021-04-22] MEDS: Famotidine 20 MG TAB PO SCH ×2 (08:57→20:51)
[2021-04-22] MEDS: Famotidine/PF 20 mg/2ml Vial SLOW IVP SCH ×2 (09:00→20:52)
[2021-04-22] MEDS ORDERED: Fentanyl 100 MCG/2 ML VIAL SLOW IVP PRN (09:12)
[2021-04-22] MEDS ORDERED: HYDROcodone/Acetaminophen 7.5/325 mg Tablet PO PRN ×2 (09:12)
[2021-04-22 18:00] LABS: #Eosinphils 0.1 thou/uL (0.0-0.7); #Lymphocytes 0.9 thou/uL (1.20-3.40); #Monocytes 1.1 thou/uL (0.11-0.59); #Neutrophils 11.1 thou/uL (1.40-6.50); %Eosinophils 0.7 % (0.0-10.0); %Lymphocytes 6.7 % (21.0-51.0); %Neutrophils 84.5 % (42.0-75.0); Hemoglobin 12.7 g/dL (14.0-18.0); Mean Corpuscular HGB CONC 32.3 g/dL (32.0-36.0); Mean Corpuscular Hemoglobin 31.5 pg (27.0-31.0); Mean Corpuscular Volume 97.4 fL (78.0-98.0); Mean Platelet Volume 6.4 fL (7.4-10.4); Platelet Count 342 thou/uL (130-400); RBC Distribution Width 11.9 % (11.5-14.5); Red Blood Cell (RBC) Count 4.03 mill/uL (4.70-6.10); White Blood Cell (WBC) Count 13.2 thou/uL (4.8-10.8)
[2021-04-22 18:12] LABS: Anion Gap 12 mmol/L (10-20); BUN (Urea Nitrogen) 12 mg/dL (8.4-25.7); Calc. Creatinine Clearance 119 mL/min (70-130); Calcium 8.9 mg/dL (7.8-10.44); Carbon Dioxide 27 mmol/L (23-31); Chloride 97 mmol/L (98-107); Glucose 109 mg/dL (80-115); Potassium 4.3 mmol/L (3.5-5.1); Sodium 132 mmol/L (136-145)
[2021-04-22] MEDS: Enoxaparin Sodium 40 MG/0.4 ML SYRINGE SC SCH (20:51)
[2021-04-22] MEDS: Tamsulosin HCl 0.4 MG CAP PO SCH (20:51)
[2021-04-22] MEDS: traZODone HCl 50 MG TAB PO SCH (20:51)
[2021-04-23] MEDS: Lisinopril/Hydrochlorothiazide 20 mg/12.5 mg Tablet PO SCH (08:13)
[2021-04-23] MEDS: DULoxetine 60 MG CAP PO SCH (08:13)
[2021-04-23] MEDS: Loratadine 10 MG TAB PO SCH (08:13)
[2021-04-23] MEDS: Famotidine 20 MG TAB PO SCH ×2 (08:13→21:14)
[2021-04-23] MEDS: Famotidine/PF 20 mg/2ml Vial SLOW IVP SCH ×2 (08:18→21:15)
[2021-04-23] MEDS ORDERED: Diphenoxylate HCl/Atropine Tablet PO SCH (14:45)
[2021-04-23] MEDS: Tamsulosin HCl 0.4 MG CAP PO SCH (21:14)
[2021-04-23] MEDS: Enoxaparin Sodium 40 MG/0.4 ML SYRINGE SC SCH (21:14)
[2021-04-23] MEDS: traZODone HCl 50 MG TAB PO SCH (21:14)
[2021-04-23] MEDS: Diphenoxylate HCl/Atropine Tablet PO SCH (21:15)
[2021-04-24] MEDS: Famotidine 20 MG TAB PO SCH ×2 (08:26→22:08)
[2021-04-24] MEDS: Lisinopril/Hydrochlorothiazide 20 mg/12.5 mg Tablet PO SCH (08:27)
[2021-04-24] MEDS: DULoxetine 60 MG CAP PO SCH (08:27)
[2021-04-24] MEDS: Loratadine 10 MG TAB PO SCH (08:28)
[2021-04-24] MEDS: Diphenoxylate HCl/Atropine Tablet PO SCH ×2 (08:32→22:08)
[2021-04-24] MEDS: Famotidine/PF 20 mg/2ml Vial SLOW IVP SCH ×2 (08:54→22:09)
[2021-04-24] MEDS: Tamsulosin HCl 0.4 MG CAP PO SCH (22:08)
[2021-04-24] MEDS: traZODone HCl 50 MG TAB PO SCH (22:08)
[2021-04-24] MEDS: Enoxaparin Sodium 40 MG/0.4 ML SYRINGE SC SCH (22:09)
[2021-04-25] MEDS: Lisinopril/Hydrochlorothiazide 20 mg/12.5 mg Tablet PO SCH (08:41)
[2021-04-25] MEDS: Diphenoxylate HCl/Atropine Tablet PO SCH ×2 (08:41→21:32)
[2021-04-25] MEDS: Loratadine 10 MG TAB PO SCH (08:41)
[2021-04-25] MEDS: Famotidine 20 MG TAB PO SCH ×2 (08:42→21:32)
[2021-04-25] MEDS: DULoxetine 60 MG CAP PO SCH (08:42)
[2021-04-25] MEDS: Famotidine/PF 20 mg/2ml Vial SLOW IVP SCH ×2 (08:45→21:33)
[2021-04-25] MEDS: Tamsulosin HCl 0.4 MG CAP PO SCH (21:32)
[2021-04-25] MEDS: Enoxaparin Sodium 40 MG/0.4 ML SYRINGE SC SCH (21:32)
[2021-04-25] MEDS: traZODone HCl 50 MG TAB PO SCH (21:32)
[2021-04-26] MEDS: Famotidine/PF 20 mg/2ml Vial SLOW IVP SCH ×2 (08:45→20:25)
[2021-04-26] MEDS: Famotidine 20 MG TAB PO SCH ×2 (09:32→20:25)
[2021-04-26] MEDS: Diphenoxylate HCl/Atropine Tablet PO SCH ×2 (09:32→20:25)
[2021-04-26] MEDS: DULoxetine 60 MG CAP PO SCH (09:32)
[2021-04-26] MEDS: Lisinopril/Hydrochlorothiazide 20 mg/12.5 mg Tablet PO SCH (09:32)
[2021-04-26] MEDS: Loratadine 10 MG TAB PO SCH (09:32)
[2021-04-26 20:11] VITALS: BP 95/58; TEMP 99.8
[2021-04-26] MEDS: Tamsulosin HCl 0.4 MG CAP PO SCH (20:25)
[2021-04-26] MEDS: traZODone HCl 50 MG TAB PO SCH (20:25)
[2021-04-26] MEDS: Enoxaparin Sodium 40 MG/0.4 ML SYRINGE SC SCH (20:25)
== END 2021-04-26 20:34 | disposition home or self-care (01) | DRG 329 ==
LOC: ERS 12:12 → SJJU 16:39
PROVIDERS: ADMIT Specialist; ATTEND Specialist
PROC: 8E0ZXY6 Isolation (ICD-10-PCS; 2021-04-16)
PROC: 0D1B0Z4 Bypass Ileum to Cutaneous, Open Approach (ICD-10-PCS; principal; 2021-04-19)
PROC: 0DBB0ZZ Excision of Ileum, Open Approach (ICD-10-PCS; 2021-04-19)
PROC: 0WUF0JZ Supplement Abdominal Wall with Synthetic Substitute, Open Approach (ICD-10-PCS; 2021-04-19)
PROC: 0WUF0JZ Supplement Abdominal Wall with Synthetic Substitute, Open Approach (ICD-10-PCS; 2021-04-19)
DX: K43.3 Parastomal hernia with obstruction, without gangrene (principal); U07.1 COVID-19; K43.0 Incisional hernia with obstruction, without gangrene; E11.9 Type 2 diabetes mellitus without complications; F32.A Depression, unspecified; E78.00 Pure hypercholesterolemia, unspecified; I10 Essential (primary) hypertension; E78.5 Hyperlipidemia, unspecified; Z93.3 Colostomy status; Z79.899 Other long term (current) drug therapy
CPT/HCPCS: 36415; 71045; 74177; 80048; 80053; 83605; 83690; 85025; 96365; 96366; 96375; 96376; C1776; J0694; J1650; J1885; J2270; J2405; J2543; J2704; J2765; J3010; J3480; J3490; Q9967; S0020; S0028; U0002

== ENCOUNTER 2021-05-29 09:12 | Outpatient (CLI) | payer OTHER ==
[2021-05-29 10:20] LABS: #Basophils 0.1 10x3/uL (0.0-0.2); #Eosinphils 0.2 10x3/uL (0.0-0.5); #Monocytes 0.4 10x3/uL (0.0-1.1); #Neutrophils 3.8 10x3/uL (1.5-8.4); %Basophils 1.2 % (0.0-2.0); %Eosinophils 3.3 % (0.0-6.0); %Lymphocytes 13.5 % (18.0-47.0); %Monocytes 8.1 % (0.0-10.0); %Neutrophils 73.7 % (40.0-75.0); Hemoglobin 13.6 g/dL (13.5-17.5); Mean Corpuscular HGB CONC 31.4 g/dL (32.0-36.0); Mean Corpuscular Hemoglobin 30.3 pg (27.0-33.0); Mean Corpuscular Volume 96.4 fl (81.2-95.1); Mean Platelet Volume 8.8 fl (7.4-10.4); Platelet Count 258 10x3/uL (150-450); Red Blood Cell (RBC) Count 4.49 10x6/uL (4.32-5.72); White Blood Cell (WBC) Count 5.2 10x3/uL (3.5-10.5)
[2021-05-29 10:42] LABS: Anion Gap 12 mmol/L (10-20); BUN (Urea Nitrogen) 19 mg/dL (8.4-25.7); Calc. Creatinine Clearance 0 mL/min (70-130); Carbon Dioxide 28 mmol/L (23-31); Chloride 103 mmol/L (98-107); Glucose 107 mg/dL (80-115); Potassium 4.4 mmol/L (3.5-5.1); Sodium 139 mmol/L (136-145)
[2021-05-30 00:05] LABS: SARS-CoV-2 PCR by NAA Not Detected (NotDetected)
== END 2021-05-29 09:13 | disposition home or self-care (01) ==
LOC: LABBT 09:12
PROVIDERS: ATTEND Surgery
DX: Z01.812 Encounter for preprocedural laboratory examination (principal); Z43.2 Encounter for attention to ileostomy; Z20.822 Contact with and (suspected) exposure to COVID-19
CPT/HCPCS: 80048; 85025; U0003; U0005

== ENCOUNTER 2021-05-30 15:12 | Outpatient (CLI) | payer OTHER | END 2021-05-30 15:13 | disposition home or self-care (01) | LOC: RAD 15:12 | PROVIDERS: ATTEND Surgery | DX: K94.03 Colostomy malfunction (principal) | CPT/HCPCS: 74280 ==